=== PATIENT | female | born 1950 | race Caucasian/White ===

== ENCOUNTER 2018-10-25 21:07 | Observation (INO) | payer MEDICARE, BC ==
[2018-10-25] MEDS ORDERED: Morphine 2 MG/ML Syringe IVPUSH ONE (21:22)
[2018-10-25] MEDS ORDERED: Sodium Chloride 0.9% 1,000 ML IV ONE (21:22)
[2018-10-25] MEDS ORDERED: Ondansetron 4 MG/2 ML SDV IVPUSH ONE (21:22)
--- NOTE | 2018-10-25 21:22 | EDM.PDOC ---
<Isac Torres - Last Filed: 10/26/18 00:26> ED HPI GENERAL MEDICAL PROBLEM - General Chief Complaint: Abdominal Pain Stated Complaint: ABDOMINAL PAIN Time Seen by Provider: 10/25/18 21:17 - History of Present Illness INITIAL COMMENTS - FREE TEXT/NARRATIVE: CT scan demonstrates dilated loops of small bowel with some mesenteric fat stranding differential diagnosis includes ileus versus small bowel obstruction patient will be admitted. - Related Data Allergies Allergy/AdvReac Type Severity Reaction Status Date / Time ampicillin Allergy Hives Verified 10/25/18 21:20 Sulfa (Sulfonamide Allergy Hives Verified 10/25/18 21:20 Antibiotics) Home Meds: Home Meds Desvenlafaxine Succinate [Pristiq] 100 mg PO BEDTIME 10/26/18 [History] Diclofenac Sodium/Misoprostol [Arthrotec EC 50 mg-200 Mcg Tab] 1 each PO BID [History] Ondansetron [Zofran] 4 mg PO ASDIRECTED 10/26/18 [History] Ranitidine HCl [Zantac] 300 mg PO DAILY 10/26/18 [History] Course - Vital Signs Last Recorded V/S: Last Vital Signs Temp 96.7 F 10/26/18 16:00 Pulse 59 L 10/26/18 16:00 Resp 20 10/26/18 16:00 BP 98/64 10/26/18 16:00 Pulse Ox 97 10/26/18 16:00 - Orders/Labs/Meds Orders: Medication Orders Acetaminophen (Tylenol) 650 mg PO Q6H PRN PRN Reason: Headache Last Admin: 10/26/18 16:18 Dose: 650 mg Sodium Chloride (Normal Saline) 1,000 mls @ 125 mls/hr IV ASDIRECTED [facility] Last Admin: 10/26/18 11:31 Dose: 125 mls/hr Infusion: 10/26/18 11:01 Dose: 125 mls/hr Admin: 10/26/18 03:01 Dose: 125 mls/hr Morphine Sulfate (Morphine) 2 mg IVPUSH Q2H PRN PRN Reason: Pain Labs: Laboratory Tests 10/25/18 10/25/18 10/25/18 Range/Units 21:30 21:30 22:20 WBC 6.10 (4.0-11.0) K/uL RBC 5.08 (4.30-5.90) M/uL Hgb 12.9 (12.0-16.0) g/dL Hct 40.0 (36.0-46.0) % MCV 78.7 L (80.0-98.0) fL MCH 25.4 L (27.0-32.0) pg MCHC 32.3 (31.0-37.0) g/dL RDW Std Deviation 42.7 (28.0-62.0) fl RDW Coeff of Praveen 15 (11.0-15.0) % Plt Count 132 L (150-400) K/uL MPV 11.20 (7.40-12.00) fL Neut % (Auto) 75.9 (48.0-80.0) % Lymph % (Auto) 19.0 (16.0-40.0) % [place] % (Auto) 3.8 (0.0-15.0) % Eos % (Auto) 1.1 (0.0-7.0) % Baso % (Auto) 0.2 (0.0-1.5) % Neut # (Auto) 4.6 (1.4-5.7) K/uL Lymph # (Auto) 1.2 (0.6-2.4) K/uL [place] # (Auto) 0.2 (0.0-0.8) K/uL Eos # (Auto) 0.1 (0.0-0.7) K/uL Baso # (Auto) 0.0 (0.0-0.1) K/uL Nucleated RBC % 0.0 /100WBC Nucleated RBCs # 0 K/uL Sodium 137 (136-145) mmol/L Potassium 4.7 (3.5-5.1) mmol/L Chloride 101 (98-107) mmol/L Carbon Dioxide 25.4 (21.0-32.0) mmol/L BUN 26 H (7.0-18.0) mg/dL Creatinine 1.2 H (0.6-1.0) mg/dL Est Cr Clr Drug Dosing 37.63 mL/min Estimated GFR (MDRD) 44.8 ml/min Glucose 131 H (74-106) mg/dL Calcium 9.8 (8.5-10.1) mg/dL Total Bilirubin 0.7 (0.2-1.0) mg/dL AST 17 (15-37) IU/L ALT 21 (14-63) IU/L Alkaline Phosphatase 96 (46-116) U/L Total Protein 7.7 (6.4-8.2) g/dL Albumin 4.0 (3.4-5.0) g/dL Globulin 3.7 (2.6-4.0) g/dL Albumin/Globulin Ratio 1.1 (0.9-1.6) Lipase 136 (73-393) U/L Urine Color YELLOW Urine Appearance CLEAR Urine pH 5.0 (5.0-8.0) Ur Specific [place] 1.020 (1.001-1.035) Urine Protein NEGATIVE (NEGATIVE) mg/dL Urine Glucose (UA) NEGATIVE (NEGATIVE) mg/dL Urine Ketones NEGATIVE (NEGATIVE) mg/dL Urine Occult Blood TRACE-INTACT H (NEGATIVE) Urine Nitrite NEGATIVE (NEGATIVE) Urine Bilirubin NEGATIVE (NEGATIVE) Urine Urobilinogen 0.2 (<2.0) EU/dL Ur Leukocyte Esterase NEGATIVE (NEGATIVE) Urine RBC 0-3 (0-2/HPF) Urine WBC 0-2 (0-5/HPF) Ur Epithelial Cells OCCASIONAL (NONE-FEW) Urine Bacteria FEW (NEGATIVE) Meds: Medications Generic Name Dose Route Start Last Admin Trade Name Freq PRN Reason Stop Dose Admin Acetaminophen 650 mg 10/26/18 15:54 10/26/18 16:18 Tylenol PO 650 mg Q6H PRN Administration Headache Sodium Chloride 1,000 mls @ 125 mls/hr 10/26/18 02:45 10/26/18 11:31 Normal Saline IV 125 mls/hr ASDIRECTED MARY Administration Morphine Sulfate 2 mg 10/26/18 02:31 Morphine IVPUSH Q2H PRN Pain Discontinued Medications Generic Name Dose Route Start Last Admin Trade Name Freq PRN Reason Stop Dose Admin Sodium Chloride 1,000 mls @ 999 mls/hr 10/25/18 21:22 10/25/18 21:36 Normal Saline IV 10/25/18 22:22 999 mls/hr STAT ONE Administration Morphine Sulfate 2 mg 10/25/18 21:22 10/25/18 21:38 Morphine IVPUSH 10/25/18 21:23 2 mg ONETIME ONE Administration Morphine Sulfate 2 mg 10/26/18 01:37 10/26/18 01:44 Morphine IVPUSH 10/26/18 01:38 2 mg ONETIME ONE Administration Ondansetron HCl 4 mg 10/25/18 21:22 10/25/18 21:37 Zofran IVPUSH 10/25/18 21:23 4 mg ONETIME ONE Administration Departure - Departure Time of Disposition: 00:27 Disposition: Refer to Observation Condition: Good Clinical Impression: Abdominal pain Qualifiers: Abdominal location: unspecified location Qualified Code(s): R10.9 - Unspecified abdominal pain - Discharge Information <Roshni Rutherford E - Last Filed: 10/26/18 18:24> ED HPI GENERAL MEDICAL PROBLEM - General Source of Information: Reports: Patient History Limitations: Reports: No Limitations - History of Present Illness INITIAL COMMENTS - FREE TEXT/NARRATIVE: HISTORY AND PHYSICAL: History of present illness: Patient is a 68-year-old female who presents to the emergency room with complaints of right upper quadrant pain and nausea. She states symptoms started this morning which she describes as cramping. She states normally she is able to pass "a lot of gas" throughout the day and has not today. She did state she had a normal bowel movement this afternoon. Patient denies any fever, chills, headache, change in vision, syncope or near syncope. Denies any chest pain, back pain, shortness of breath or cough. Denies any vomiting, diarrhea, constipation or dysuria. Has not noted any blood in urine or stool. Patient has been eating and drinking appropriately. Patient has had her gallbladder and appendix removed. Otherwise has no GI history. Review of systems: As per history of present illness and below otherwise all systems reviewed and negative. Past medical history: As per history of present illness and as reviewed below otherwise noncontributory. Surgical history: As per history of present illness and as reviewed below otherwise noncontributory. Social history: See social history for further information Family history: As per history of present illness and as reviewed below otherwise noncontributory. Physical exam: General: Well-developed and well-nourished 68-year-old female. Alert and oriented. Nontoxic appearing and in no acute distress. HEENT: Atraumatic, normocephalic, pupils equal and reactive bilaterally, negative for conjunctival pallor or scleral icterus, mucous membranes moist, TMs normal bilaterally, throat clear, neck supple, nontender, trachea midline. No drooling or trismus noted. No meningeal signs. No hot potato voice noted. Lungs: Clear to auscultation, breath sounds equal bilaterally, chest nontender. Heart: S1S2, regular rate and rhythm without overt murmur Abdomen: Soft, nondistended, right upper quadrant tenderness. Negative for masses or hepatosplenomegaly. Negative for costovertebral tenderness. Pelvis: Stable nontender. Genitourinary: Deferred. Rectal: Deferred. Skin: Intact, warm, dry. No lesions or rashes noted. Extremities: Atraumatic, moves all extremities per self without difficulty or deficits, negative for cords or calf pain. Neurovascular unremarkable. Neuro: Awake, alert, oriented. Cranial nerves II through XII unremarkable. Cerebellum unremarkable. Motor and sensory unremarkable throughout. Exam nonfocal. Notes: Labs and imaging results are pending. Dr Torres was briefed on this patient and will assume care. Diagnostics: CBC, CMP, UA, lipase, CT abdomen and pelvis Therapeutics: IV fluid, Morphine, Zofran Definitive disposition and diagnosis as appropriate pending reevaluation and review of above. Onset: Today Past Medical History HEENT History: Reports: None Cardiovascular History: Reports: None Respiratory History: Reports: None Gastrointestinal History: Reports: Other (See Below) Other Gastrointestinal History: partial obstruction on her small intestine Genitourinary History: Reports: None [employer] WORK[employer] History: Reports: Musculoskeletal History: Reports: Arthritis Neurological History: Reports: None Psychiatric History: Reports: Depression Endocrine/Metabolic History: Reports: None Hematologic History: Reports: None Immunologic History: Reports: None Oncologic (Cancer) History: Reports: None Dermatologic History: Reports: None - Infectious Disease History Infectious Disease History: Reports: None - Past Surgical History Neurological Surgical History: Reports: Other (See Below) ED ROS GENERAL - Review of Systems Review Of Systems: ROS reveals no pertinent complaints other than HPI. ED EXAM, GI/ABD - Physical Exam Exam: See Below (See dictation) Course - Vital Signs Last Recorded V/S: Last Vital Signs Temp 96.7 F 10/26/18 16:00 Pulse 59 L 10/26/18 16:00 Resp 20 10/26/18 16:00 BP 98/64 10/26/18 16:00 Pulse Ox 97 10/26/18 16:00 - Orders/Labs/Meds Labs: Laboratory Tests 10/25/18 10/25/18 10/25/18 Range/Units 21:30 21:30 22:20 WBC 6.10 (4.0-11.0) K/uL RBC 5.08 (4.30-5.90) M/uL Hgb 12.9 (12.0-16.0) g/dL Hct 40.0 (36.0-46.0) % MCV 78.7 L (80.0-98.0) fL MCH 25.4 L (27.0-32.0) pg MCHC 32.3 (31.0-37.0) g/dL RDW Std Deviation 42.7 (28.0-62.0) fl RDW Coeff of Praveen 15 (11.0-15.0) % Plt Count 132 L (150-400) K/uL MPV 11.20 (7.40-12.00) fL Neut % (Auto) 75.9 (48.0-80.0) % Lymph % (Auto) 19.0 (16.0-40.0) % [place] % (Auto) 3.8 (0.0-15.0) % Eos % (Auto) 1.1 (0.0-7.0) % Baso % (Auto) 0.2 (0.0-1.5) % Neut # (Auto) 4.6 (1.4-5.7) K/uL Lymph # (Auto) 1.2 (0.6-2.4) K/uL [place] # (Auto) 0.2 (0.0-0.8) K/uL Eos # (Auto) 0.1 (0.0-0.7) K/uL Baso # (Auto) 0.0 (0.0-0.1) K/uL Nucleated RBC % 0.0 /100WBC Nucleated RBCs # 0 K/uL Sodium 137 (136-145) mmol/L Potassium 4.7 (3.5-5.1) mmol/L Chloride 101 (98-107) mmol/L Carbon Dioxide 25.4 (21.0-32.0) mmol/L BUN 26 H (7.0-18.0) mg/dL Creatinine 1.2 H (0.6-1.0) mg/dL Est Cr Clr Drug Dosing 37.63 mL/min Estimated GFR (MDRD) 44.8 ml/min Glucose 131 H (74-106) mg/dL Calcium 9.8 (8.5-10.1) mg/dL Total Bilirubin 0.7 (0.2-1.0) mg/dL AST 17 (15-37) IU/L ALT 21 (14-63) IU/L Alkaline Phosphatase 96 (46-116) U/L Total Protein 7.7 (6.4-8.2) g/dL Albumin 4.0 (3.4-5.0) g/dL Globulin 3.7 (2.6-4.0) g/dL Albumin/Globulin Ratio 1.1 (0.9-1.6) Lipase 136 (73-393) U/L Urine Color YELLOW Urine Appearance CLEAR Urine pH 5.0 (5.0-8.0) Ur Specific [place] 1.020 (1.001-1.035) Urine Protein NEGATIVE (NEGATIVE) mg/dL Urine Glucose (UA) NEGATIVE (NEGATIVE) mg/dL Urine Ketones NEGATIVE (NEGATIVE) mg/dL Urine Occult Blood TRACE-INTACT H (NEGATIVE) Urine Nitrite NEGATIVE (NEGATIVE) Urine Bilirubin NEGATIVE (NEGATIVE) Urine Urobilinogen 0.2 (<2.0) EU/dL Ur Leukocyte Esterase NEGATIVE (NEGATIVE) Urine RBC 0-3 (0-2/HPF) Urine WBC 0-2 (0-5/HPF) Ur Epithelial Cells OCCASIONAL (NONE-FEW) Urine Bacteria FEW (NEGATIVE) Meds: Medications Generic Name Dose Route Start Last Admin Trade Name Freq PRN Reason Stop Dose Admin Acetaminophen 650 mg 10/26/18 15:54 10/26/18 16:18 Tylenol PO 650 mg Q6H PRN Administration Headache Sodium Chloride 1,000 mls @ 125 mls/hr 10/26/18 02:45 10/26/18 11:31 Normal Saline IV 125 mls/hr ASDIRECTED MARY Administration Morphine Sulfate 2 mg 10/26/18 02:31 Morphine IVPUSH Q2H PRN Pain Discontinued Medications Generic Name Dose Route Start Last Admin Trade Name Freq PRN Reason Stop Dose Admin Sodium Chloride 1,000 mls @ 999 mls/hr 10/25/18 21:22 10/25/18 21:36 Normal Saline IV 10/25/18 22:22 999 mls/hr STAT ONE Administration Morphine Sulfate 2 mg 10/25/18 21:22 10/25/18 21:38 Morphine IVPUSH 10/25/18 21:23 2 mg ONETIME ONE Administration Morphine Sulfate 2 mg 10/26/18 01:37 10/26/18 01:44 Morphine IVPUSH 10/26/18 01:38 2 mg ONETIME ONE Administration Ondansetron HCl 4 mg 10/25/18 21:22 10/25/18 21:37 Zofran IVPUSH 10/25/18 21:23 4 mg ONETIME ONE Administration
--- NOTE | 2018-10-26 00:15 | CT ---
INDICATION: Abdominal pain TECHNIQUE: CT abdomen and pelvis without contrast. COMPARISON: None FINDINGS: Lower chest: Unremarkable. Liver: Unremarkable. Spleen: Unremarkable. Pancreas: Unremarkable. Gallbladder and bile ducts: Cholecystectomy. Dilated common bile duct most likely related to reservoir effect. Kidneys: Unremarkable. No kidney or ureteral stones and no hydronephrosis. Adrenal glands: Unremarkable. GI tract: Dilated fluid-filled small bowel loops measure up to 3.4 centimeters with physicians somewhere in the right lower quadrant and mild adjacent mesenteric fat stranding. Findings may represent ileus versus small-bowel obstruction.. Appendix is not visualized. Vascular structures: Unremarkable. Lymph nodes: Unremarkable. Miscellaneous: Unremarkable. No free air. Small amount of free fluid in the pelvis. Pelvic Organs: Unremarkable. Bones: Grade 1 anterolisthesis L3 over L4. IMPRESSION: Dilated fluid-filled small bowel loops measure up to 3.4 centimeters with changing caliber somewhere in the region of the mid to distal ileum with adjacent mesenteric fat stranding. Findings may represent ileus or small-bowel obstruction. Cholecystectomy. Dictated by Wojciech Bower MD @ 10/26/2018 12:13:14 AM Please note that all CT scans at this facility use dose modulation, iterative reconstruction, and/or weight-based dosing when appropriate to reduce radiation dose to as low as reasonably achievable. Dictated by: Wojciech Bower MD @ 10/26/2018 00:13:22 (Electronically Signed)
[2018-10-26] MEDS ORDERED: Morphine 2 MG/ML Syringe IVPUSH ONE (01:37)
[2018-10-26] MEDS ORDERED: Morphine 2 MG/ML Syringe IVPUSH PRN (02:31)
[2018-10-26] MEDS: Sodium Chloride 0.9% 1,000 ML IV SCH ×3 (03:01→20:42)
--- NOTE | 2018-10-26 13:55 | PCM.HP ---
H&P History of Present Illness - General Date of Service: 10/26/18 Admit Problem/Dx: Admission Diagnosis/Problem Admission Diagnosis/Problem Abdominal pain - History of Present Illness Initial Comments - Free Text/Narative: 68 yo female who presents with one day history of abdominal pain, nausea and vomiting. Patient reports last bowel movement was yesterday. IN the ED patient had CT scan of abdomen suggestive of ileus. Abdominal Pain Score (Numeric/FACES): 6 - Related Data Allergies/Adverse Reactions: Allergies Allergy/AdvReac Type Severity Reaction Status Date / Time ampicillin Allergy Hives Verified 10/25/18 21:20 Sulfa (Sulfonamide Allergy Hives Verified 10/25/18 21:20 Antibiotics) Home Medications: Home Meds Desvenlafaxine Succinate [Pristiq] 100 mg PO BEDTIME 10/26/18 [History] Diclofenac Sodium/Misoprostol [Arthrotec EC 50 mg-200 Mcg Tab] 1 each PO BID [History] Ondansetron [Zofran] 4 mg PO ASDIRECTED 10/26/18 [History] Ranitidine HCl [Zantac] 300 mg PO DAILY 10/26/18 [History] Past Medical History HEENT History: Reports: None Cardiovascular History: Reports: None Respiratory History: Reports: None Gastrointestinal History: Reports: Other (See Below) Other Gastrointestinal History: partial obstruction on her small intestine Genitourinary History: Reports: 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: Musculoskeletal History: Reports: Arthritis Neurological History: Reports: None Psychiatric History: Reports: Depression Endocrine/Metabolic History: Reports: None Hematologic History: Reports: None Immunologic History: Reports: None Oncologic (Cancer) History: Reports: None Dermatologic History: Reports: None - Infectious Disease History Infectious Disease History: Reports: None - Past Surgical History Neurological Surgical History: Reports: Other (See Below) Social & Family History - Family History Family Medical History: Noncontributory - Tobacco Use Smoking Status *Q: Never Smoker Second Hand Smoke Exposure: No - Caffeine Use Caffeine Use: Reports: Soda - Recreational Drug Use Recreational Drug Use: No H&P Review of Systems - Review of Systems: Review Of Systems: ROS reveals no pertinent complaints other than HPI. Exam - Exam Exam: See Below - Vital Signs Vital Signs: Last Vital Signs Temp 35.9 C 10/26/18 12:00 Pulse 75 10/26/18 12:00 Resp 22 H 10/26/18 12:00 BP 101/68 10/26/18 12:00 Pulse Ox 95 10/26/18 12:00 Weight: 85.321 kg - Exam General: Alert, Oriented HEENT: Mucosa Moist & [place] Neck: Supple Lungs: Clear to Auscultation, Normal Respiratory Effort Cardiovascular: Regular Rate, Regular Rhythm GI/Abdominal Exam: Normal Bowel Sounds, Soft, Non-Tender, No Distention Extremities: Non-Tender, No Pedal Edema Skin: Warm, Dry, Intact - Patient Data Lab Results Last 24 hrs: Laboratory Results - last 24 hr 10/25/18 10/25/18 10/25/18 Range/Units 21:30 21:30 22:20 WBC 6.10 (4.0-11.0) K/uL RBC 5.08 (4.30-5.90) M/uL Hgb 12.9 (12.0-16.0) g/dL Hct 40.0 (36.0-46.0) % MCV 78.7 L (80.0-98.0) fL MCH 25.4 L (27.0-32.0) pg MCHC 32.3 (31.0-37.0) g/dL RDW Std Deviation 42.7 (28.0-62.0) fl RDW Coeff of Praveen 15 (11.0-15.0) % Plt Count 132 L (150-400) K/uL MPV 11.20 (7.40-12.00) fL Neut % (Auto) 75.9 (48.0-80.0) % Lymph % (Auto) 19.0 (16.0-40.0) % [place] % (Auto) 3.8 (0.0-15.0) % Eos % (Auto) 1.1 (0.0-7.0) % Baso % (Auto) 0.2 (0.0-1.5) % Neut # (Auto) 4.6 (1.4-5.7) K/uL Lymph # (Auto) 1.2 (0.6-2.4) K/uL [place] # (Auto) 0.2 (0.0-0.8) K/uL Eos # (Auto) 0.1 (0.0-0.7) K/uL Baso # (Auto) 0.0 (0.0-0.1) K/uL Nucleated RBC % 0.0 /100WBC Nucleated RBCs # 0 K/uL Sodium 137 (136-145) mmol/L Potassium 4.7 (3.5-5.1) mmol/L Chloride 101 (98-107) mmol/L Carbon Dioxide 25.4 (21.0-32.0) mmol/L BUN 26 H (7.0-18.0) mg/dL Creatinine 1.2 H (0.6-1.0) mg/dL Est Cr Clr Drug Dosing 37.63 mL/min Estimated GFR (MDRD) 44.8 ml/min Glucose 131 H (74-106) mg/dL Calcium 9.8 (8.5-10.1) mg/dL Total Bilirubin 0.7 (0.2-1.0) mg/dL AST 17 (15-37) IU/L ALT 21 (14-63) IU/L Alkaline Phosphatase 96 (46-116) U/L Total Protein 7.7 (6.4-8.2) g/dL Albumin 4.0 (3.4-5.0) g/dL Globulin 3.7 (2.6-4.0) g/dL Albumin/Globulin Ratio 1.1 (0.9-1.6) Lipase 136 (73-393) U/L Urine Color YELLOW Urine Appearance CLEAR Urine pH 5.0 (5.0-8.0) Ur Specific [place] 1.020 (1.001-1.035) Urine Protein NEGATIVE (NEGATIVE) mg/dL Urine Glucose (UA) NEGATIVE (NEGATIVE) mg/dL Urine Ketones NEGATIVE (NEGATIVE) mg/dL Urine Occult Blood TRACE-INTACT H (NEGATIVE) Urine Nitrite NEGATIVE (NEGATIVE) Urine Bilirubin NEGATIVE (NEGATIVE) Urine Urobilinogen 0.2 (<2.0) EU/dL Ur Leukocyte Esterase NEGATIVE (NEGATIVE) Urine RBC 0-3 (0-2/HPF) Urine WBC 0-2 (0-5/HPF) Ur Epithelial Cells OCCASIONAL (NONE-FEW) Urine Bacteria FEW (NEGATIVE) Result Diagrams: 10/25/18 21:30 10/25/18 21:30 Problem List Initiated/Reviewed/Updated: Yes Orders Last 24hrs: Active Orders 24 hr Category Date Time Status Patient Status [ADT] Stat ADT 10/26/18 00:27 Active Antiembolic Devices [RC] PER UNIT ROUTINE Care 10/26/18 13:53 Ordered Oxygen Therapy [RC] PRN Care 10/26/18 13:48 Ordered Up ad [place] [RC] ASDIRECTED Care 10/26/18 13:48 Ordered VTE/DVT Education [RC] PER UNIT ROUTINE Care 10/26/18 13:48 Ordered Vital Signs [RC] Q4H Care 10/26/18 13:48 Ordered NPO [Nothing Per Oral Diet] [DIET] Diet 10/26/18 Breakfast Active BASIC METABOLIC PANEL,BMP [CHEM] AM Lab 10/27/18 05:11 Ordered BASIC METABOLIC PANEL,BMP [CHEM] AM Lab 10/28/18 05:11 Ordered CBC WITH AUTO DIFF [HEME] AM Lab 10/27/18 05:11 Ordered CBC WITH AUTO DIFF [HEME] AM Lab 10/28/18 05:11 Ordered Morphine Med 10/26/18 02:31 Active 2 mg IVPUSH Q2H PRN Sodium Chloride 0.9% [Normal Saline] 1,000 ml Med 10/26/18 02:45 Active IV ASDIRECTED Sequential Compression Device [OM.PC] Per Unit Routine Oth 10/26/18 13:51 Ordered Resuscitation Status Routine Resus Stat 10/26/18 13:48 Ordered Medication Orders Sodium Chloride (Normal Saline) 1,000 mls @ 125 mls/hr IV ASDIRECTED MARY Last Admin: 10/26/18 11:31 Dose: 125 mls/hr Infusion: 10/26/18 11:01 Dose: 125 mls/hr Admin: 10/26/18 03:01 Dose: 125 mls/hr Morphine Sulfate (Morphine) 2 mg IVPUSH Q2H PRN PRN Reason: Pain Assessment/Plan Comment:: 68 yo female admitted for partial small bowel obstruction. Patient reports abdominal pain has been improving since admission. We will treat with IV fluids and bowel rest.
[2018-10-26] MEDS: Acetaminophen 325 MG Tab PO PRN (16:18)
[2018-10-27] MEDS: Sodium Chloride 0.9% 1,000 ML IV SCH (04:44)
[2018-10-27 06:56] LABS: CHLORIDE,CL 110 mmol/L (98-107); SODIUM,NA 143 mmol/L (136-145)
--- NOTE | 2018-10-27 11:15 | PCM.DCSUM1 ---
Discharge Summary - Discharge Data Discharge Date: 10/27/18 Discharge Disposition: Home, Self-Care 01 Condition: Good - Patient Summary/Data Hospital Course: 68 yo female who was admitted for partial small bowel obstruction. She presents with one day history of abdominal pain, nausea and vomiting. CT scan of abdomen was also suggestive of ileus. She was treated with bowel rest and IV fluids. Her abdominal pain resolved and at discharge she is tolerating an oral diet. She has a follow up with Dr. Stevenson who has already referred her for outpatient endoscopy. - Patient Instructions Diet: Usual Diet as Tolerated Activity: As Tolerated Notify Provider of: Increased Pain - Discharge Plan Home Medications: Home Meds Desvenlafaxine Succinate [Pristiq] 100 mg PO BEDTIME 10/26/18 [History] Diclofenac Sodium/Misoprostol [Arthrotec EC 50 mg-200 Mcg Tab] 1 each PO BID [History] Ondansetron [Zofran] 4 mg PO ASDIRECTED 10/26/18 [History] Ranitidine HCl [Zantac] 300 mg PO DAILY 10/26/18 [History] Forms: ED Department Discharge Referrals: PCP,Unknown [Primary Care Provider] - - Discharge Summary/Plan Comment DC Time >30 min.: No - Patient Data Vitals - Most Recent: Last Vital Signs Temp 36.6 C 10/27/18 07:51 Pulse 64 10/27/18 07:51 Resp 17 10/27/18 07:51 BP 115/66 10/27/18 07:51 Pulse Ox 96 10/27/18 07:51 Weight - Most Recent: 85.321 kg I&O - Last 24 hours: Intake & Output 10/26/18 10/27/18 10/27/18 22:59 06:59 14:59 Intake Total 1409 1422 Output Total 600 1300 Balance 809 122 Lab Results - Last 24 hrs: Laboratory Results - last 24 hr 10/27/18 10/27/18 Range/Units 06:05 06:05 WBC 2.73 L (4.0-11.0) K/uL RBC 3.91 L (4.30-5.90) M/uL Hgb 9.8 L (12.0-16.0) g/dL Hct 31.3 L (36.0-46.0) % MCV 80.1 (80.0-98.0) fL MCH 25.1 L (27.0-32.0) pg MCHC 31.3 (31.0-37.0) g/dL RDW Std Deviation 42.5 (28.0-62.0) fl RDW Coeff of Praveen 15 (11.0-15.0) % Plt Count 155 (150-400) K/uL MPV 10.00 (7.40-12.00) fL Neut % (Auto) 49.8 (48.0-80.0) % Lymph % (Auto) 37.4 (16.0-40.0) % [place] % (Auto) 9.2 (0.0-15.0) % Eos % (Auto) 2.9 (0.0-7.0) % Baso % (Auto) 0.7 (0.0-1.5) % Neut # (Auto) 1.4 (1.4-5.7) K/uL Lymph # (Auto) 1.0 (0.6-2.4) K/uL [place] # (Auto) 0.3 (0.0-0.8) K/uL Eos # (Auto) 0.1 (0.0-0.7) K/uL Baso # (Auto) 0.0 (0.0-0.1) K/uL Nucleated RBC % 0.0 /100WBC Nucleated RBCs # 0 K/uL Sodium 143 (136-145) mmol/L Potassium 3.5 (3.5-5.1) mmol/L Chloride 110 H (98-107) mmol/L Carbon Dioxide 27.4 (21.0-32.0) mmol/L BUN 17 (7.0-18.0) mg/dL Creatinine 0.9 (0.6-1.0) mg/dL Est Cr Clr Drug Dosing 50.18 mL/min Estimated GFR (MDRD) > 60.0 ml/min Glucose 86 (74-106) mg/dL Calcium 8.4 L (8.5-10.1) mg/dL Med Orders - Current: Current Medications Acetaminophen (Tylenol) 650 mg PO Q6H PRN PRN Reason: Headache Last Admin: 10/26/18 16:18 Dose: 650 mg Sodium Chloride (Normal Saline) 1,000 mls @ 125 mls/hr IV ASDIRECTED [facility] Last Admin: 10/27/18 04:44 Dose: 125 mls/hr Morphine Sulfate (Morphine) 2 mg IVPUSH Q2H PRN PRN Reason: Pain Discontinued Medications Sodium Chloride (Normal Saline) 1,000 mls @ 999 mls/hr IV STAT ONE Stop: 10/25/18 22:22 Last Admin: 10/25/18 21:36 Dose: 999 mls/hr Morphine Sulfate (Morphine) 2 mg IVPUSH ONETIME ONE Stop: 10/25/18 21:23 Last Admin: 10/25/18 21:38 Dose: 2 mg Morphine Sulfate (Morphine) 2 mg IVPUSH ONETIME ONE Stop: 10/26/18 01:38 Last Admin: 10/26/18 01:44 Dose: 2 mg Ondansetron HCl (Zofran) 4 mg IVPUSH ONETIME ONE Stop: 10/25/18 21:23 Last Admin: 10/25/18 21:37 Dose: 4 mg
[2018-10-27] MEDS: Acetaminophen 325 MG Tab PO PRN (12:21)
[2018-10-27 12:46] VITALS: BP 144/82
== END 2018-10-27 13:40 | disposition home or self-care (01) ==
LOC: MW.ED 21:07 → MW.MS 10-26 00:27
PROVIDERS: ADMIT Internal Medicine; ATTEND Internal Medicine
DX: K56.609 Unspecified intestinal obstruction, unspecified as to partial versus complete obstruction (principal); Z79.1 Long term (current) use of non-steroidal anti-inflammatories (NSAID); Z79.899 Other long term (current) drug therapy; Z88.0 Allergy status to penicillin; Z88.2 Allergy status to sulfonamides
CPT/HCPCS: 36415; 74176; 80048; 80053; 81001; 83690; 85025; 96361; 96374; 96375; 96376; 99285; A9270; G0378; J2270; J2405; J7040; 99284

== ENCOUNTER 2018-12-04 20:23 | Emergency (ER) | payer MEDICARE, BC ==
[2018-12-04] MEDS ORDERED: Sodium Chloride 0.9% 1,000 ML IV ONE (20:47)
[2018-12-04] MEDS ORDERED: Ondansetron 4 MG/2 ML SDV IVPUSH ONE (20:53)
[2018-12-04] MEDS ORDERED: Morphine 2 MG/ML Syringe IVPUSH ONE (20:53)
--- NOTE | 2018-12-04 20:57 | EDM.PDOC ---
ED HPI GENERAL MEDICAL PROBLEM - General Chief Complaint: Genitourinary Problem Stated Complaint: FEVER AND MID BACK PAIN Time Seen by Provider: 12/04/18 20:47 Source of Information: Reports: Patient History Limitations: Reports: No Limitations - History of Present Illness INITIAL COMMENTS - FREE TEXT/NARRATIVE: HISTORY AND PHYSICAL: History of present illness: Patient is a 68-year-old female who presents to the emergency room with complaints of bilateral flank pain, dysuria, subjective fever and chills. Patient states that her symptoms started with the mid back pain near her flanks for the past 3 days. Over the past 24 hours she feels like she has been running a fever and is having difficulty voiding. States her urine is dark in color and voiding small amounts. Patient denies any headache, change in vision, syncope or near syncope. Denies any chest pain, back pain, shortness of breath or cough. Denies any nausea, vomiting, diarrhea, or constipation. Has not noted any blood in urine or stool. Patient has been eating appropriately, but not drinking much water. Review of systems: As per history of present illness and below otherwise all systems reviewed and negative. Past medical history: As per history of present illness and as reviewed below otherwise noncontributory. Surgical history: As per history of present illness and as reviewed below otherwise noncontributory. Social history: See social history for further information Family history: As per history of present illness and as reviewed below otherwise noncontributory. Physical exam: General: Well-developed and well-nourished 68-year-old female. Alert and oriented. Nontoxic appearing and in no acute distress. HEENT: Atraumatic, normocephalic, pupils equal and reactive bilaterally, negative for conjunctival pallor or scleral icterus, mucous membranes moist, TMs normal bilaterally, throat clear, neck supple, nontender, trachea midline. No drooling or trismus noted. No meningeal signs. No hot potato voice noted. Lungs: Clear to auscultation, breath sounds equal bilaterally, chest nontender. Heart: S1S2, regular rate and rhythm without overt murmur Abdomen: Soft, nondistended, mild left lower quadrant tenderness with palpation. Negative for masses or hepatosplenomegaly. Negative for costovertebral tenderness. Pelvis is stable and nontender. Genitourinary/Rectal: Deferred. Skin: Intact, warm, dry. No lesions or rashes noted. Extremities: Atraumatic, moves all extremities per self without difficulty or deficits, negative for cords or calf pain. Neurovascular unremarkable. Neuro: Awake, alert, oriented. Cranial nerves II through XII unremarkable. Cerebellum unremarkable. Motor and sensory unremarkable throughout. Exam nonfocal. Notes: CT shows no acute abnormality identified. No calcified urinary stones/evidence of obstruction. Urinary bladder unremarkable. Nonobstructive bowel pattern. Scattered diverticulosis. Stable enlargement of the common bile duct, likely reservoir effect. Patient is mild hypokalemia, oral replacement will be given here and an additional 4 day prescription. Encouraged her to increase her oral fluids as she does appear dehydrated. She did receive 1 L fluids while here in the emergency room. Patient does have a history of anemia, past hemoglobin relatively the same as today's result. All findings were shared with the patient. We discussed the need for appropriate follow-up. Supportive care measures were reviewed and discussed. Voices understanding and is agreeable to plan of care. Denies any further questions or concerns at this time. Diagnostics: CBC, CMP, UA, CT abdomen and pelvis without Therapeutics: IV fluid, Zofran, morphine Prescription: Cipro K-dur Pyridium Impression: Anemia Dehydration Urinary tract infection Plan: 1. Increase your oral fluids, mild dehydration today. 2. Take medication as prescribed. You have 3 prescriptions. Antibiotic for your urinary tract infection. Pyridium to help with the discomfort associated with your urinary tract infection and an oral potassium replacement as he were slightly low than normal. I would like him to follow up for reevaluation of all of these. 3. Follow up with your primary care providers as we discussed. Return to the ED as needed as discussed. Definitive disposition and diagnosis as appropriate pending reevaluation and review of above. Bilateral Middle Back Pain Score (Numeric/FACES): 10 - Related Data Allergies Allergy/AdvReac Type Severity Reaction Status Date / Time ampicillin Allergy Hives Verified 12/04/18 20:42 Sulfa (Sulfonamide Allergy Hives Verified 12/04/18 20:42 Antibiotics) Home Meds: Home Meds Desvenlafaxine Succinate [Pristiq] 100 mg PO BEDTIME 10/26/18 [History] Diclofenac Sodium/Misoprostol [Arthrotec EC 50 mg-200 Mcg Tab] 1 each PO BID [History] Ranitidine HCl [Zantac] 300 mg PO DAILY 10/26/18 [History] Docusate Sodium [Stool Softener] 50 mg PO ASDIRECTED 12/04/18 [History] Past Medical History HEENT History: Reports: None Cardiovascular History: Reports: None Respiratory History: Reports: None Gastrointestinal History: Reports: Hemorrhoids, Other (See Below) Other Gastrointestinal History: partial obstruction on her small intestine Genitourinary History: Reports: None FRAME BENDER History: Reports: Musculoskeletal History: Reports: Arthritis Neurological History: Reports: None Psychiatric History: Reports: Depression Endocrine/Metabolic History: Reports: None Hematologic History: Reports: None Immunologic History: Reports: None Oncologic (Cancer) History: Reports: None Dermatologic History: Reports: None - Infectious Disease History Infectious Disease History: Reports: Chicken Pox, Measles - Past Surgical History GI Surgical History: Reports: Colonoscopy, EGD Neurological Surgical History: Reports: Other (See Below) Social & Family History - Family History Family Medical History: Noncontributory - Tobacco Use Smoking Status *Q: Never Smoker - Caffeine Use Caffeine Use: Reports: Soda - Recreational Drug Use Recreational Drug Use: No ED ROS GENERAL - Review of Systems Review Of Systems: ROS reveals no pertinent complaints other than HPI. ED EXAM, RENAL/ - Physical Exam Exam: See Below (See dictation) Course - Vital Signs Last Recorded V/S: Last Vital Signs Temp 96.6 F 12/04/18 20:40 Pulse 90 12/04/18 21:34 Resp 15 12/04/18 21:34 BP 122/68 12/04/18 21:34 Pulse Ox 100 12/04/18 21:34 - Orders/Labs/Meds Orders: Active Orders 24 hr Category Date Time Status CULTURE URINE [RM] Stat Lab 12/04/18 21:30 Received Ciprofloxacin [Ciprofloxacin HCl] Med 12/04/18 21:58 Once 500 mg PO ONETIME ONE Phenazopyridine [Pyridium] Med 12/04/18 21:58 Once 200 mg PO ONETIME ONE Labs: Laboratory Tests 12/04/18 12/04/18 12/04/18 Range/Units 21:15 21:15 21:30 WBC 7.35 (4.0-11.0) K/uL RBC 3.79 L (4.30-5.90) M/uL Hgb 9.7 L (12.0-16.0) g/dL Hct 30.2 L (36.0-46.0) % MCV 79.7 L (80.0-98.0) fL MCH 25.6 L (27.0-32.0) pg MCHC 32.1 (31.0-37.0) g/dL RDW Std Deviation 43.5 (28.0-62.0) fl RDW Coeff of Praveen 15 (11.0-15.0) % Plt Count 202 (150-400) K/uL MPV 9.40 (7.40-12.00) fL Neut % (Auto) 81.0 H (48.0-80.0) % Lymph % (Auto) 9.5 L (16.0-40.0) % [place] % (Auto) 8.3 (0.0-15.0) % Eos % (Auto) 1.1 (0.0-7.0) % Baso % (Auto) 0.1 (0.0-1.5) % Neut # (Auto) 6.0 H (1.4-5.7) K/uL Lymph # (Auto) 0.7 (0.6-2.4) K/uL [place] # (Auto) 0.6 (0.0-0.8) K/uL Eos # (Auto) 0.1 (0.0-0.7) K/uL Baso # (Auto) 0.0 (0.0-0.1) K/uL Nucleated RBC % 0.0 /100WBC Nucleated RBCs # 0 K/uL Sodium 134 L (136-145) mmol/L Potassium 3.3 L (3.5-5.1) mmol/L Chloride 96 L (98-107) mmol/L Carbon Dioxide 27.2 (21.0-32.0) mmol/L BUN 20 H (7.0-18.0) mg/dL Creatinine 1.3 H (0.6-1.0) mg/dL Est Cr Clr Drug Dosing 34.74 mL/min Estimated GFR (MDRD) 40.9 ml/min Glucose 120 H (74-106) mg/dL Calcium 8.6 (8.5-10.1) mg/dL Total Bilirubin 1.2 H (0.2-1.0) mg/dL AST 19 (15-37) IU/L ALT 18 (14-63) IU/L Alkaline Phosphatase 95 (46-116) U/L Total Protein 6.7 (6.4-8.2) g/dL Albumin 3.2 L (3.4-5.0) g/dL Globulin 3.5 (2.6-4.0) g/dL Albumin/Globulin Ratio 0.9 (0.9-1.6) Urine Color YELLOW Urine Appearance CLEAR Urine pH 5.0 (5.0-8.0) Ur Specific [place] 1.010 (1.001-1.035) Urine Protein NEGATIVE (NEGATIVE) mg/dL Urine Glucose (UA) NEGATIVE (NEGATIVE) mg/dL Urine Ketones NEGATIVE (NEGATIVE) mg/dL Urine Occult Blood TRACE-INTACT H (NEGATIVE) Urine Nitrite NEGATIVE (NEGATIVE) Urine Bilirubin NEGATIVE (NEGATIVE) Urine Urobilinogen 0.2 (<2.0) EU/dL Ur Leukocyte Esterase TRACE H (NEGATIVE) Urine RBC NONE SEEN (0-2/HPF) Urine WBC 1-3 (0-5/HPF) Ur Epithelial Cells FEW (NONE-FEW) Urine Bacteria RARE (NEGATIVE) Urine Mucus LIGHT (NONE-MOD) Meds: Medications Discontinued Medications Generic Name Dose Route Start Last Admin Trade Name Freq PRN Reason Stop Dose Admin Sodium Chloride 1,000 mls @ 999 mls/hr 12/04/18 20:47 12/04/18 21:11 Normal Saline IV 12/04/18 21:47 999 mls/hr STAT ONE Administration Morphine Sulfate 2 mg 12/04/18 20:53 12/04/18 21:11 Morphine IVPUSH 12/04/18 20:54 2 mg ONETIME ONE Administration Ondansetron HCl 4 mg 12/04/18 20:53 12/04/18 21:11 Zofran IVPUSH 12/04/18 20:54 4 mg ONETIME ONE Administration Departure - Departure Time of Disposition: 21:59 Disposition: Home, Self-Care 01 Clinical Impression: UTI, Urinary tract infectious disease, Dehydration, mild, Hypokalemia - Discharge Information Referrals: Sherice Bedoya DO [Primary Care Provider] - Forms: ED Department Discharge Additional Instructions: The following information is given to patients seen in the emergency department who are being discharged to home. This information is to outline your options for follow-up care. We provide all patients seen in our emergency department with a follow-up referral. The need for follow-up, as well as the timing and circumstances, are variable depending upon the specifics of your emergency department visit. If you don't have a primary care physician on staff, we will provide you with a referral. We always advise you to contact your personal physician following an emergency department visit to inform them of the circumstance of the visit and for follow-up with them and/or the need for any referrals to a consulting specialist. The emergency department will also refer you to a specialist when appropriate. This referral assures that you have the opportunity for follow-up care with a specialist. All of these measure are taken in an effort to provide you with optimal care, which includes your follow-up. Under all circumstances we always encourage you to contact your private physician who remains a resource for coordinating your care. When calling for follow-up care, please make the office aware that this follow-up is from your recent emergency room visit. If for any reason you are refused follow-up, please contact the [facility] Emergency Department at and asked to speak to the emergency department charge nurse. [facility] [address] [place], [place] [id number] [address] [address] 1. Increase your oral fluids, mild dehydration today. 2. Take medication as prescribed. You have 3 prescriptions. Antibiotic for your urinary tract infection. Pyridium to help with the discomfort associated with your urinary tract infection and an oral potassium replacement as he were slightly low than normal. I would like him to follow up for reevaluation of all of these. 3. Follow up with your primary care providers as we discussed. Return to the ED as needed as discussed. - My Orders Last 24 Hours: My Active Orders 12/04/18 21:30 CULTURE URINE [RM] Stat 12/04/18 21:58 Ciprofloxacin [Ciprofloxacin HCl] 500 mg PO ONETIME ONE Phenazopyridine [Pyridium] 200 mg PO ONETIME ONE - Assessment/Plan Last 24 Hours: My Active Orders 12/04/18 21:30 CULTURE URINE [RM] Stat 12/04/18 21:58 Ciprofloxacin [Ciprofloxacin HCl] 500 mg PO ONETIME ONE Phenazopyridine [Pyridium] 200 mg PO ONETIME ONE
--- NOTE | 2018-12-04 21:36 | CT ---
INDICATION: Bilateral upper quadrant pain, dysuria. TECHNIQUE: Nonenhanced volumetric CT scan abdomen pelvis with multiplanar reconstructions. COMPARISON: October 25, 2018. FINDINGS: Lower chest is unremarkable. No calcified urinary stones. Ureters are normal in course and caliber. The urinary bladder is unremarkable. Noncontrast appearance of the solid abdominal organs is stable and within normal limits. Cholecystectomy. Mild enlargement of common bile duct re-identified, stable. Nonobstructing, unremarkable bowel pattern. No evidence of obstruction. Appendix not seen. No evidence of ascites, free air, nor inflammatory change. Stimulator device in left flank with leads and wires extending into the spine at approximately L1 and T12 levels. Urinary bladder unremarkable. Hysterectomy. No adnexal mass. 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 Grade 1 anterolisthesis L3 on L4 re-identified. IMPRESSION: 1. No acute abnormality identified. 2. No calcified urinary stones/evidence of obstruction. Urinary bladder unremarkable. 3. Nonobstructive bowel pattern. Scattered diverticulosis. 4. Stable enlargement of the common bile duct, likely reservoir effect. Please note that all CT scans at this facility use dose modulation, iterative reconstruction, and/or weight-based dosing when appropriate to reduce radiation dose to as low as reasonably achievable. Dictated by Rafal Howell MD @ Dec 04 2018 9:21PM Signed by Dr. Rafal Howell @ Dec 04 2018 9:35PM
[2018-12-04] MEDS ORDERED: Ciprofloxacin 500 MG Tab PO ONE (21:58)
[2018-12-04] MEDS ORDERED: Phenazopyridine 200 MG Tab PO ONE (21:58)
[2018-12-04 23:11] VITALS: BP 110/69
== END 2018-12-04 22:40 | disposition home or self-care (01) ==
LOC: MW.ED 20:23
DX: N39.0 Urinary tract infection, site not specified (principal); E86.0 Dehydration; D64.9 Anemia, unspecified; F32.9 Major depressive disorder, single episode, unspecified; Z88.1 Allergy status to other antibiotic agents; Z88.2 Allergy status to sulfonamides; Z79.899 Other long term (current) drug therapy
CPT/HCPCS: 36415; 74176; 80053; 81001; 85025; 87086; 96361; 96374; 96375; 99284; A9270; J2270; J2405; J7040

== ENCOUNTER 2019-07-24 10:33 | Observation (INO) | payer MEDICARE, BC ==
--- NOTE | 2019-07-24 10:39 | EDM.PDOC ---
ED HPI GENERAL MEDICAL PROBLEM - General Stated Complaint: SWEATS,WHEEZING,SHAKY Time Seen by Provider: 07/24/19 10:38 Source of Information: Reports: Patient History Limitations: Reports: No Limitations - History of Present Illness INITIAL COMMENTS - FREE TEXT/NARRATIVE: HISTORY AND PHYSICAL: History of present illness: Patient is a 69-year-old female who presents to the emergency room today with complaints of shortness of breath and diaphoresis. She states that she has had some shortness of breath over the past 2 days along with just generally feeling unwell and rundown. Today while at work she states "sweat was just pouring off of me". She also feels somewhat dizzy. Patient denies any fever, chills, headache, change in vision, syncope or near syncope. Denies any chest pain, back pain or cough. Denies any abdominal pain, nausea, vomiting, diarrhea, constipation or dysuria. Has not noted any blood in urine or stool. Patient has been eating and drinking appropriately. She denies any recent travel or being exposed to anyone who is sick. Review of systems: As per history of present illness and below otherwise all systems reviewed and negative. Past medical history: As per history of present illness and as reviewed below otherwise noncontributory. Surgical history: As per history of present illness and as reviewed below otherwise noncontributory. Social history: See social history for further information Family history: As per history of present illness and as reviewed below otherwise noncontributory. Physical exam: General: Developed and well-nourished 69-year-old female. Alert and oriented. Nontoxic-appearing and in no acute distress. HEENT: Atraumatic, normocephalic, pupils equal and reactive bilaterally, negative for conjunctival pallor or scleral icterus, mucous membranes moist, TMs normal bilaterally, throat clear, neck supple, nontender, trachea midline. No drooling or trismus noted. No meningeal signs. No hot potato voice noted. Lungs: Clear to auscultation, breath sounds equal bilaterally, chest nontender. Heart: S1S2, regular rate and rhythm without overt murmur Abdomen: Soft, nondistended, nontender. Negative for masses or hepatosplenomegaly. Negative for costovertebral tenderness. Pelvis: Stable nontender. Skin: Intact, warm, and slightly diaphoretic. No lesions or rashes noted. Extremities: Atraumatic, moves all extremities per self without difficulty or deficits, negative for cords or calf pain. Neurovascular unremarkable. Neuro: Awake, alert, oriented. Cranial nerves II through XII unremarkable. Cerebellum unremarkable. Motor and sensory unremarkable throughout. Exam nonfocal. Notes: Lab work shows an elevated d-dimer and renal function. I will need to do a CT of her chest to rule out PE. Patient is aware and agreeable to plan of care. The radiologist is reading the CT chest as no gross pulmonary embolism in the main or proximal segment branches. More distally PE could be missed due to suboptimal opacified pulmonary arteries. Patient's vital signs have been stable. As I am talking to the patient about her diagnostic results she states she does feel better with her shortness of breath although now has developed some pain between her shoulder blades (which is new within the last 30 minutes) . New lab work has been added on, will repeat EKG. We discussed observation admission which she is agreeable to. Dr Gee was consulted on this case and will admit for observation with telemetry. Diagnostics: CBC, CMP, d-dimer, UA, EKG, chest x-ray, CT chest rule out PE, Troponin, INR Therapeutics: IV fluid, DuoNeb Impression: Dyspnea Plan: Observation admission with telemetry Definitive disposition and diagnosis as appropriate pending reevaluation and review of above. - Related Data Allergies Allergy/AdvReac Type Severity Reaction Status Date / Time ampicillin Allergy Hives Verified 12/04/18 20:42 Sulfa (Sulfonamide Allergy Hives Verified 12/04/18 20:42 Antibiotics) Home Meds: Home Meds Desvenlafaxine Succinate [Pristiq] 100 mg PO BEDTIME 10/26/18 [History] Diclofenac Sodium/Misoprostol [Arthrotec EC 50 mg-200 Mcg Tab] 1 each PO BID [History] raNITIdine HCl [Zantac] 300 mg PO DAILY 10/26/18 [History] Docusate Sodium [Stool Softener] 50 mg PO ASDIRECTED 12/04/18 [History] Past Medical History HEENT History: Reports: None Cardiovascular History: Reports: None Respiratory History: Reports: None Gastrointestinal History: Reports: Hemorrhoids, Other (See Below) Other Gastrointestinal History: partial obstruction on her small intestine Genitourinary History: Reports: None [employer]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: Musculoskeletal History: Reports: Arthritis Neurological History: Reports: None Psychiatric History: Reports: Depression Endocrine/Metabolic History: Reports: None Hematologic History: Reports: None Immunologic History: Reports: None Oncologic (Cancer) History: Reports: None Dermatologic History: Reports: None - Infectious Disease History Infectious Disease History: Reports: Chicken Pox, Measles - Past Surgical History GI Surgical History: Reports: Colonoscopy, EGD Neurological Surgical History: Reports: Other (See Below) Social & Family History - Family History Family Medical History: Noncontributory - Caffeine Use Caffeine Use: Reports: Soda ED ROS GENERAL - Review of Systems Review Of Systems: Comprehensive ROS is negative, except as noted in HPI. ED EXAM, GENERAL - Physical Exam Exam: See Below (See dictation) Course - Vital Signs Last Recorded V/S: Last Vital Signs Temp 96.5 F 07/24/19 11:00 Pulse 100 07/24/19 11:00 Resp 16 07/24/19 11:00 BP 128/85 07/24/19 11:00 Pulse Ox 99 07/24/19 11:00 - Orders/Labs/Meds Orders: Active Orders 24 hr Category Date Time Status Admission Status [Patient Status] [ADT] Stat ADT 07/24/19 13:28 Ordered EKG Documentation Completion [RC] STAT Care 07/24/19 10:44 Active EKG Documentation Completion [RC] STAT Care 07/24/19 13:07 Active RT Aerosol Therapy [RC] ASDIRECTED Care 07/24/19 10:48 Active Labs: Laboratory Tests 07/24/19 07/24/19 07/24/19 Range/Units 10:40 10:40 10:40 WBC 5.30 (4.0-11.0) K/uL RBC 4.64 (4.30-5.90) M/uL Hgb 13.7 (12.0-16.0) g/dL Hct 40.2 (36.0-46.0) % MCV 86.6 (80.0-98.0) fL MCH 29.5 (27.0-32.0) pg MCHC 34.1 (31.0-37.0) g/dL RDW Std Deviation 38.9 (28.0-62.0) fl RDW Coeff of Praveen 12 (11.0-15.0) % Plt Count 213 (150-400) K/uL MPV 10.40 (7.40-12.00) fL Neut % (Auto) 68.1 (48.0-80.0) % Lymph % (Auto) 23.8 (16.0-40.0) % [place] % (Auto) 4.7 (0.0-15.0) % Eos % (Auto) 2.5 (0.0-7.0) % Baso % (Auto) 0.9 (0.0-1.5) % Neut # (Auto) 3.6 (1.4-5.7) K/uL Lymph # (Auto) 1.3 (0.6-2.4) K/uL [place] # (Auto) 0.3 (0.0-0.8) K/uL Eos # (Auto) 0.1 (0.0-0.7) K/uL Baso # (Auto) 0.1 (0.0-0.1) K/uL Nucleated RBC % 0.0 /100WBC Nucleated RBCs # 0 K/uL INR D-Dimer, Quantitative 1.01 H (0.0-0.50) mg/L FEU Sodium 139 (136-145) mmol/L Potassium 4.8 (3.5-5.1) mmol/L Chloride 102 (98-107) mmol/L Carbon Dioxide 28.3 (21.0-32.0) mmol/L BUN 37 H (7.0-18.0) mg/dL Creatinine 1.6 H (0.6-1.0) mg/dL Est Cr Clr Drug Dosing 27.84 mL/min Estimated GFR (MDRD) 32.1 ml/min Glucose 93 (74-106) mg/dL Calcium 9.2 (8.5-10.1) mg/dL Total Bilirubin 0.6 (0.2-1.0) mg/dL AST 18 (15-37) IU/L ALT 23 (14-63) IU/L Alkaline Phosphatase 105 (46-116) U/L Troponin I (0.000-0.056) ng/mL Total Protein 7.6 (6.4-8.2) g/dL Albumin 4.0 (3.4-5.0) g/dL Globulin 3.6 (2.6-4.0) g/dL Albumin/Globulin Ratio 1.1 (0.9-1.6) Urine Color Urine Appearance Urine pH (5.0-8.0) Ur Specific [place] (1.001-1.035) Urine Protein (NEGATIVE) mg/dL Urine Glucose (UA) (NEGATIVE) mg/dL Urine Ketones (NEGATIVE) mg/dL Urine Occult Blood (NEGATIVE) Urine Nitrite (NEGATIVE) Urine Bilirubin (NEGATIVE) Urine Urobilinogen (<2.0) EU/dL Ur Leukocyte Esterase (NEGATIVE) Urine RBC (0-2/HPF) Urine WBC (0-5/HPF) Ur Epithelial Cells (NONE-FEW) Urine Bacteria (NEGATIVE) Urine Mucus (NONE-MOD) 07/24/19 07/24/19 07/24/19 Range/Units 10:40 10:40 11:24 WBC (4.0-11.0) K/uL RBC (4.30-5.90) M/uL Hgb (12.0-16.0) g/dL Hct (36.0-46.0) % MCV (80.0-98.0) fL MCH (27.0-32.0) pg MCHC (31.0-37.0) g/dL RDW Std Deviation (28.0-62.0) fl RDW Coeff of Prave[place] (11.0-15.0) % Plt Count (150-400) K/uL MPV (7.40-12.00) fL Neut % (Auto) (48.0-80.0) % Lymph % (Auto) (16.0-40.0) % [place] % (Auto) (0.0-15.0) % Eos % (Auto) (0.0-7.0) % Baso % (Auto) (0.0-1.5) % Neut # (Auto) (1.4-5.7) K/uL Lymph # (Auto) (0.6-2.4) K/uL [place] # (Auto) (0.0-0.8) K/uL Eos # (Auto) (0.0-0.7) K/uL Baso # (Auto) (0.0-0.1) K/uL Nucleated RBC % /100WBC Nucleated RBCs # K/uL INR 1.02 D-Dimer, Quantitative (0.0-0.50) mg/L FEU Sodium (136-145) mmol/L Potassium (3.5-5.1) mmol/L Chloride (98-107) mmol/L Carbon Dioxide (21.0-32.0) mmol/L BUN (7.0-18.0) mg/dL Creatinine (0.6-1.0) mg/dL Est Cr Clr Drug Dosing mL/min Estimated GFR (MDRD) ml/min Glucose (74-106) mg/dL Calcium (8.5-10.1) mg/dL Total Bilirubin (0.2-1.0) mg/dL AST (15-37) IU/L ALT (14-63) IU/L Alkaline Phosphatase (46-116) U/L Troponin I < 0.050 (0.000-0.056) ng/mL Total Protein (6.4-8.2) g/dL Albumin (3.4-5.0) g/dL Globulin (2.6-4.0) g/dL Albumin/Globulin Ratio (0.9-1.6) Urine Color YELLOW Urine Appearance CLEAR Urine pH 5.0 (5.0-8.0) Ur Specific [place] >= 1.030 (1.001-1.035) Urine Protein NEGATIVE (NEGATIVE) mg/dL Urine Glucose (UA) NEGATIVE (NEGATIVE) mg/dL Urine Ketones NEGATIVE (NEGATIVE) mg/dL Urine Occult Blood TRACE-INTACT H (NEGATIVE) Urine Nitrite NEGATIVE (NEGATIVE) Urine Bilirubin NEGATIVE (NEGATIVE) Urine Urobilinogen 0.2 (<2.0) EU/dL Ur Leukocyte Esterase NEGATIVE (NEGATIVE) Urine RBC 0-2 (0-2/HPF) Urine WBC 1-2 (0-5/HPF) Ur Epithelial Cells FEW (NONE-FEW) Urine Bacteria RARE (NEGATIVE) Urine Mucus LIGHT (NONE-MOD) Meds: Medications Discontinued Medications Generic Name Dose Route Start Last Admin Trade Name Freq PRN Reason Stop Dose Admin Albuterol/Ipratropium 3 ml 07/24/19 10:48 07/24/19 11:12 Duoneb 3.0-0.5 Mg/3 Ml NEB 07/24/19 10:49 3 ml ONETIME ONE Administration Sodium Chloride 1,000 mls @ 999 mls/hr 07/24/19 11:48 07/24/19 11:52 Normal Saline IV 07/24/19 12:48 999 mls/hr STAT ONE Administration Iopamidol 50 ml 07/24/19 12:05 07/24/19 12:25 Isovue Multipack-370 (76%) IVPUSH 07/24/19 12:06 50 ml ONETIME STA Administration Departure - Departure Time of Disposition: 13:34 Disposition: Refer to Observation Clinical Impression: Dyspnea Qualifiers: Dyspnea type: unspecified Qualified Code(s): R06.00 - Dyspnea, unspecified - Discharge Information Referrals: Tano Mahoney MD [Primary Care Provider] - Sepsis Event Note - Focused Exam Vital Signs: Vital Signs Temp Pulse Resp BP Pulse Ox 07/24/19 11:00 96.5 F 100 16 128/85 99 Date Exam was Performed: 07/24/19 Time Exam was Performed: 13:34 - My Orders Last 24 Hours: My Active Orders 07/24/19 10:44 EKG Documentation Completion [RC] STAT 07/24/19 10:48 RT Aerosol Therapy [RC] ASDIRECTED 07/24/19 13:07 EKG Documentation Completion [RC] STAT 07/24/19 13:28 Admission Status [Patient Status] [ADT] Stat - Assessment/Plan Last 24 Hours: My Active Orders 07/24/19 10:44 EKG Documentation Completion [RC] STAT 07/24/19 10:48 RT Aerosol Therapy [RC] ASDIRECTED 07/24/19 13:07 EKG Documentation Completion [RC] STAT 07/24/19 13:28 Admission Status [Patient Status] [ADT] Stat
[2019-07-24] MEDS ORDERED: Albuterol/Ipratropium 3.0-0.5 MG/3 ML Neb Soln NEB ONE (10:48)
[2019-07-24 11:18] LABS: CARBON DIOXIDE,CO2 28.3 mmol/L (21.0-32.0); POTASSIUM,K 4.8 mmol/L (3.5-5.1)
[2019-07-24] MEDS ORDERED: Sodium Chloride 0.9% 1,000 ML IV ONE (11:48)
[2019-07-24] MEDS ORDERED: Iopamidol 755 MG/ML 500 ML Multipack Bottle IVPUSH STA (12:05)
--- NOTE | 2019-07-24 12:06 | CR ---
Chest: 2 views of the chest were obtained. Comparison: No previous chest x-ray is available. Heart size is mildly enlarged. Electro-stimulating device is seen within the thoracic spine. Scattered disc space narrowing and endplate osteophytes are noted within the spine. Lungs are clear with no acute parenchymal change. Impression: 1. Nothing acute is appreciated on 2 view chest x-ray. 2. Nonacute findings as noted above. Diagnostic code #2 This report was dictated in [place] Standard Time
--- NOTE | 2019-07-24 12:53 | CT ---
CT chest Technique: Multiple axial sections through the chest were obtained. Intravenous contrast was utilized. Study performed as a pulmonary angiogram protocol. Findings: Pulmonary arteries are extremely suboptimally opacified. No gross filling defect within the main or proximal segmental branches. Other more distal pulmonary emboli could easily be missed. Ascending aorta is slightly aneurysmal at 4.2 cm. Descending aorta is normal with AP dimension 2.3 cm. Mild coronary artery calcification is seen. No mediastinal or hilar adenopathy is seen. No pericardial thickening is seen. Visualized upper abdominal structures shows no discrete abnormality. Lung window settings were reviewed. No acute parenchymal change is seen within either lung. No pleural effusions are seen. Bone window settings were reviewed which shows scattered degenerative change within the spine. Electro-stimulating wire is seen within the thoracic spine. Impression: 1. Suboptimally opacified pulmonary arteries. No gross pulmonary embolism within the main or proximal segmental branches. More distal pulmonary emboli could easily be missed. 2. Mild aneurysmal dilatation of the ascending aorta at 4.2 cm. 3. Mild coronary artery calcification. 4. Other findings believed to be incidental as noted above. Diagnostic code #3 This report was dictated in [place] Standard Time
[2019-07-24] MEDS ORDERED: Ondansetron 4 MG/2 ML SDV IVPUSH PRN (15:09)
[2019-07-24] MEDS ORDERED: Albuterol/Ipratropium 3.0-0.5 MG/3 ML Neb Soln NEB PRN (15:09)
[2019-07-24] MEDS ORDERED: Enoxaparin 40 MG/0.4 ML Syringe SUBCUT SCH (15:15)
--- NOTE | 2019-07-24 15:22 | PCM.HP.2 ---
H&P History of Present Illness - General Date of Service: 07/24/19 Admit Problem/Dx: Admission Diagnosis/Problem Admission Diagnosis/Problem Dyspnea Source of Information: Patient History Limitations: Reports: No Limitations - History of Present Illness Initial Comments - Free Text/Narative: This 69 year old female with pmh of HTN, obesity chronic back pain presented to the ED today with complaints of shortness of breath that started today. She said she work up feeling a little flushed and short of breath with activity. She denies any chest pain or palpitations. She denies recent illness, sore throat cough or sinus congestion. She denies abdominal pain or urinary concerns. No bowel habit concerns and no focal neurological deficits. She reports this shortness of breath is worse with activity and she has been sleeping on 2 pillows at home. She reports she feels she may have sleep apnea as she is always sleepy during the day and wakes up gasping at night. She denies In the ED CBC WNL. D dimer elevated at 1.01. BUN 37 and Cr 1.6. Troponin negative. CXR showed mild cardiomegaly no congestion. CT angio obtianed to rule out PE, which did rule out PE but did show ascending aortic aneurysm, measuring 4.2. Scapular pain was noted in the ED after 30 minutes of arrival. EKG SR with no ST elevation and troponin negative. PCP, DR Mahoney - Related Data Allergies/Adverse Reactions: Allergies Allergy/AdvReac Type Severity Reaction Status Date / Time ampicillin Allergy Hives Verified 07/24/19 14:34 Sulfa (Sulfonamide Allergy Hives Verified 07/24/19 14:34 Antibiotics) Home Medications: Home Meds Desvenlafaxine Succinate [Pristiq] 100 mg PO BEDTIME 10/26/18 [History] Diclofenac Sodium/Misoprostol [Arthrotec EC 50 mg-200 Mcg Tab] 1 each PO BID [History] Docusate Sodium [Stool Softener] 50 mg PO ASDIRECTED 12/04/18 [History] Famotidine 20 mg PO BID 07/24/19 [History] hydroCHLOROthiazide [Hydrochlorothiazide] 25 mg PO DAILY 07/24/19 [History] Past Medical History HEENT History: Reports: None Cardiovascular History: Reports: Hypertension. Denies: CAD Respiratory History: Reports: None. Denies: COPD Gastrointestinal History: Reports: Hemorrhoids, Other (See Below) Other Gastrointestinal History: partial obstruction on her small intestine Genitourinary History: Reports: None [employer] History: Reports: Musculoskeletal History: Reports: Arthritis Neurological History: Reports: None. Denies: CVA, TIA Psychiatric History: Reports: Depression Endocrine/Metabolic History: Reports: None Hematologic History: Reports: None Immunologic History: Reports: None Oncologic (Cancer) History: Reports: None Dermatologic History: Reports: None - Infectious Disease History Infectious Disease History: Reports: Chicken Pox, Measles - Past Surgical History GI Surgical History: Reports: Colonoscopy, EGD Neurological Surgical History: Reports: Other (See Below) Social & Family History - Family History Family Medical History: Noncontributory - Tobacco Use Smoking Status *Q: Never Smoker - Caffeine Use Caffeine Use: Reports: Soda - Alcohol Use Alcohol Use History: No - Recreational Drug Use Recreational Drug Use: No - Living Situation & Occupation 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 Denies: Fever, Chills, Malaise HEENT: Reports: No Symptoms. Denies: Headaches, Sinus Congestion, Sore Throat Pulmonary: Reports: Shortness of Breath, Wheezing, Cough, Sputum (white) Cardiovascular: Reports: No Symptoms. Denies: Chest Pain, Palpitations, Lightheadedness Gastrointestinal: Reports: No Symptoms. Denies: Abdominal Pain, Black Stool, Bloody Stool Genitourinary: Reports: No Symptoms. Denies: Dysuria, Frequency, Burning Skin: Reports: No Symptoms Psychiatric: Reports: No Symptoms Neurological: Reports: No Symptoms Hematologic/Lymphatic: Reports: No Symptoms Immunologic: Reports: No Symptoms Exam - Exam Exam: See Below - Vital Signs Vital Signs: Last Vital Signs Temp 97.2 F 07/24/19 14:00 Pulse 64 07/24/19 14:00 Resp 18 07/24/19 14:00 BP 126/72 07/24/19 14:00 Pulse Ox 100 07/24/19 14:00 Weight: 96.162 kg - Exam Quality Assessment: No: Supplemental Oxygen General: Alert, Oriented Neck: Supple, Trachea Midline Lungs: Clear to Auscultation, Normal Respiratory Effort Cardiovascular: Regular Rate, Regular Rhythm GI/Abdominal Exam: Normal Bowel Sounds, Soft, Non-Tender Back Exam: Normal Inspection, Full Range of Motion Extremities: Normal Inspection, Normal Range of Motion, Non-Tender, No Pedal Edema Neuro Extensive - Mental Status: Alert, Oriented x3 Neuro Extensive - Motor, Sensory, Reflexes: CN II-XII Intact, Normal Gait Psychiatric: Alert, Normal Affect, Normal Mood - Patient Data Lab Results Last 24 hrs: Laboratory Results - last 24 hr 07/24/19 07/24/19 07/24/19 Range/Units 10:40 10:40 10:40 WBC 5.30 (4.0-11.0) K/uL RBC 4.64 (4.30-5.90) M/uL Hgb 13.7 (12.0-16.0) g/dL Hct 40.2 (36.0-46.0) % MCV 86.6 (80.0-98.0) fL MCH 29.5 (27.0-32.0) pg MCHC 34.1 (31.0-37.0) g/dL RDW Std Deviation 38.9 (28.0-62.0) fl RDW Coeff of Praveen 12 (11.0-15.0) % Plt Count 213 (150-400) K/uL MPV 10.40 (7.40-12.00) fL Neut % (Auto) 68.1 (48.0-80.0) % Lymph % (Auto) 23.8 (16.0-40.0) % [place] % (Auto) 4.7 (0.0-15.0) % Eos % (Auto) 2.5 (0.0-7.0) % Baso % (Auto) 0.9 (0.0-1.5) % Neut # (Auto) 3.6 (1.4-5.7) K/uL Lymph # (Auto) 1.3 (0.6-2.4) K/uL [place] # (Auto) 0.3 (0.0-0.8) K/uL Eos # (Auto) 0.1 (0.0-0.7) K/uL Baso # (Auto) 0.1 (0.0-0.1) K/uL Nucleated RBC % 0.0 /100WBC Nucleated RBCs # 0 K/uL INR D-Dimer, Quantitative 1.01 H (0.0-0.50) mg/L FEU Sodium 139 (136-145) mmol/L Potassium 4.8 (3.5-5.1) mmol/L Chloride 102 (98-107) mmol/L Carbon Dioxide 28.3 (21.0-32.0) mmol/L BUN 37 H (7.0-18.0) mg/dL Creatinine 1.6 H (0.6-1.0) mg/dL Est Cr Clr Drug Dosing 27.84 mL/min Estimated GFR (MDRD) 32.1 ml/min Glucose 93 (74-106) mg/dL Calcium 9.2 (8.5-10.1) mg/dL Total Bilirubin 0.6 (0.2-1.0) mg/dL AST 18 (15-37) IU/L ALT 23 (14-63) IU/L Alkaline Phosphatase 105 (46-116) U/L Troponin I (0.000-0.056) ng/mL Total Protein 7.6 (6.4-8.2) g/dL Albumin 4.0 (3.4-5.0) g/dL Globulin 3.6 (2.6-4.0) g/dL Albumin/Globulin Ratio 1.1 (0.9-1.6) Urine Color Urine Appearance Urine pH (5.0-8.0) Ur Specific Glen (1.001-1.035) Urine Protein (NEGATIVE) mg/dL Urine Glucose (UA) (NEGATIVE) mg/dL Urine Ketones (NEGATIVE) mg/dL Urine Occult Blood (NEGATIVE) Urine Nitrite (NEGATIVE) Urine Bilirubin (NEGATIVE) Urine Urobilinogen (<2.0) EU/dL Ur Leukocyte Esterase (NEGATIVE) Urine RBC (0-2/HPF) Urine WBC (0-5/HPF) Ur Epithelial Cells (NONE-FEW) Urine Bacteria (NEGATIVE) Urine Mucus (NONE-MOD) 07/24/19 07/24/19 07/24/19 Range/Units 10:40 10:40 11:24 WBC (4.0-11.0) K/uL RBC (4.30-5.90) M/uL Hgb (12.0-16.0) g/dL Hct (36.0-46.0) % MCV (80.0-98.0) fL MCH (27.0-32.0) pg MCHC (31.0-37.0) g/dL RDW Std Deviation (28.0-62.0) fl RDW Coeff of Praveen (11.0-15.0) % Plt Count (150-400) K/uL MPV (7.40-12.00) fL Neut % (Auto) (48.0-80.0) % Lymph % (Auto) (16.0-40.0) % [place] % (Auto) (0.0-15.0) % Eos % (Auto) (0.0-7.0) % Baso % (Auto) (0.0-1.5) % Neut # (Auto) (1.4-5.7) K/uL Lymph # (Auto) (0.6-2.4) K/uL [place] # (Auto) (0.0-0.8) K/uL Eos # (Auto) (0.0-0.7) K/uL Baso # (Auto) (0.0-0.1) K/uL Nucleated RBC % /100WBC Nucleated RBCs # K/uL INR 1.02 D-Dimer, Quantitative (0.0-0.50) mg/L FEU Sodium (136-145) mmol/L Potassium (3.5-5.1) mmol/L Chloride (98-107) mmol/L Carbon Dioxide (21.0-32.0) mmol/L BUN (7.0-18.0) mg/dL Creatinine (0.6-1.0) mg/dL Est Cr Clr Drug Dosing mL/min Estimated GFR (MDRD) ml/min Glucose (74-106) mg/dL Calcium (8.5-10.1) mg/dL Total Bilirubin (0.2-1.0) mg/dL AST (15-37) IU/L ALT (14-63) IU/L Alkaline Phosphatase (46-116) U/L Troponin I < 0.050 (0.000-0.056) ng/mL Total Protein (6.4-8.2) g/dL Albumin (3.4-5.0) g/dL Globulin (2.6-4.0) g/dL Albumin/Globulin Ratio (0.9-1.6) Urine Color YELLOW Urine Appearance CLEAR Urine pH 5.0 (5.0-8.0) Ur Specific Glen >= 1.030 (1.001-1.035) Urine Protein NEGATIVE (NEGATIVE) mg/dL Urine Glucose (UA) NEGATIVE (NEGATIVE) mg/dL Urine Ketones NEGATIVE (NEGATIVE) mg/dL Urine Occult Blood TRACE-INTACT H (NEGATIVE) Urine Nitrite NEGATIVE (NEGATIVE) Urine Bilirubin NEGATIVE (NEGATIVE) Urine Urobilinogen 0.2 (<2.0) EU/dL Ur Leukocyte Esterase NEGATIVE (NEGATIVE) Urine RBC 0-2 (0-2/HPF) Urine WBC 1-2 (0-5/HPF) Ur Epithelial Cells FEW (NONE-FEW) Urine Bacteria RARE (NEGATIVE) Urine Mucus LIGHT (NONE-MOD) Result Diagrams: 07/24/19 10:40 07/24/19 10:40 Omid Results Last 24 hrs: Microbiology 07/24/19 10:49 Influenza Type A Antigen Screen - Final Nasopharyngeal Swab NEGATIVE INFLUENZA A VIRUS AG REFERENCE RANGE: NEGATIVE Influenza Type B Antigen Screen - Final NEGATIVE INFLUENZA B VIRUS AG REFERENCE RANGE: NEGATIVE Sepsis Event Note - Evaluation Sepsis Screening Result: No Definite Risk - Focused Exam Vital Signs: Vital Signs Temp Pulse Resp BP Pulse Ox 07/24/19 14:00 97.2 F 64 18 126/72 100 07/24/19 13:40 60 18 121/77 99 07/24/19 11:00 96.5 F 100 16 128/85 99 Date Exam was Performed: 07/24/19 Time Exam was Performed: 16:33 - Problem List (1) Ascending aorta dilation SNOMED Code(s): 697720341 ICD Code: I77.810 - THORACIC AORTIC ECTASIA Status: Acute Current Visit: Yes (2) Dyspnea SNOMED Code(s): 635541255 ICD Code: R06.00 - DYSPNEA, UNSPECIFIED Status: Acute Current Visit: Yes Qualifiers: Dyspnea type: unspecified Qualified Code(s): R06.00 - Dyspnea, unspecified (3) Chest pain SNOMED Code(s): 71507336 ICD Code: R07.9 - CHEST PAIN, UNSPECIFIED Status: Acute Current Visit: Yes Problem List Initiated/Reviewed/Updated: Yes Orders Last 24hrs: Active Orders 24 hr Category Date Time Status Admission Status [Patient Status] [ADT] Stat ADT 07/24/19 13:28 Active EKG Documentation Completion [RC] STAT Care 07/24/19 10:44 Active EKG Documentation Completion [RC] STAT Care 07/24/19 13:07 Active Height and Weight [RC] DAILY Care 07/24/19 15:09 Ordered Oxygen Therapy [RC] PRN Care 07/24/19 15:09 Ordered RT Aerosol Therapy [RC] ASDIRECTED Care 07/24/19 10:48 Active RT Aerosol Therapy [RC] ASDIRECTED Care 07/24/19 15:12 Ordered Telemetry Monitoring [Cardiac Monitoring] [RC] . Care 07/24/19 15:08 Ordered DIRECTED Up With Assistance [RC] ASDIRECTED Care 07/24/19 15:09 Ordered VTE/DVT Education [RC] PER UNIT ROUTINE Care 07/24/19 15:09 Ordered Vital Signs [RC] Q4H Care 07/24/19 15:09 Ordered 2 Gram Sodium Diet [DIET] Diet 07/24/19 Lunch Ordered Echo Comp wo Cont [US] Routine Exams 07/24/19 15:09 Ordered MAGNESIUM [CHEM] Routine Lab 07/24/19 15:09 Ordered Acetaminophen [Tylenol] Med 07/24/19 15:09 Ordered 650 mg PO Q4H PRN Albuterol/Ipratropium [DuoNeb 3.0-0.5 MG/3 ML] Med 07/24/19 15:09 Ordered 3 ml NEB Q4HRRT PRN Desvenlafaxine Succinate [Pristiq] Med 07/24/19 21:00 Ordered 100 mg PO BEDTIME Diclofenac Sodium/Misoprostol [Arthrotec 50 mg-200 Mcg Med 07/24/19 21:00 Ordered Tab] 1 each PO BID Enoxaparin [Lovenox] Med 07/24/19 15:15 Ordered 40 mg SUBCUT Q24H Famotidine [Pepcid] Med 07/24/19 21:00 Ordered 20 mg PO BID Ondansetron [Zofran] Med 07/24/19 15:09 Ordered 4 mg IVPUSH Q4H PRN hydroCHLOROthiazide Med 07/25/19 09:00 Ordered 25 mg PO DAILY Resuscitation Status Routine Resus Stat 07/24/19 15:09 Ordered Medication Orders Acetaminophen (Tylenol) 650 mg PO Q4H PRN PRN Reason: Pain (mild 1-3) Albuterol/Ipratropium (Duoneb 3.0-0.5 Mg/3 Ml) 3 ml NEB Q4HRRT PRN PRN Reason: Shortness Of Breath/wheezing Enoxaparin Sodium (Lovenox) 40 mg SUBCUT Q24H MARY Ondansetron HCl (Zofran) 4 mg IVPUSH Q4H PRN PRN Reason: Nausea Assessment/Plan Comment:: This 69 year old female admitted with dyspnea and chest pain 1. Chest pain: Started in ED more as scapular pain. No further pain. Trend troponin. Monitor on Telemetry. A1c WNL. Lipid panel in am. 2. Dyspnea: Improved some, will obtain ECHO due to orthopnea and possible AURELIO concerns. Arrange outpatient sleep study, concerned for pulmonary HTN 3. Aortic dilation: will arrange follow up with cardiovascular surgeon for monitoring. Had no knowledge of this, now is aware. VTE prophylaxis: Lovenox Dispo: 1 day - Mortality Measure Prognosis:: Good
[2019-07-24] MEDS: Acetaminophen 325 MG Tab PO PRN ×2 (15:45→20:09)
[2019-07-24 15:52] LABS: HEMOGLOBIN A1C 5.4 % (4.5-6.2)
[2019-07-24] MEDS: Famotidine 20 MG Tab PO SCH (20:10)
[2019-07-24] MEDS ORDERED: [UNRECOGNIZED DRUG - OTHER] PO SCH (21:00)
[2019-07-24] MEDS ORDERED: Desvenlafaxine Succinate [Pristiq] 100 MG PO SCH (21:00)
[2019-07-24] MEDS ORDERED: MISOPROSTOL PO SCH (21:00)
[2019-07-24] MEDS ORDERED: DICLOFENAC SODIUM PO SCH (21:00)
[2019-07-25 06:14] LABS: CARBON DIOXIDE,CO2 27.3 mmol/L (21.0-32.0); POTASSIUM,K 5.3 mmol/L (3.5-5.1)
[2019-07-25] MEDS ORDERED: Ibuprofen 400 MG Tab PO ONE (08:49)
[2019-07-25] MEDS ORDERED: Hydrochlorothiazide 25 MG Tab PO SCH (09:00)
[2019-07-25] MEDS: Famotidine 20 MG Tab PO SCH (09:37)
[2019-07-25 10:54] VITALS: BP 101/78; PULSE 63
--- NOTE | 2019-07-25 11:03 | PCM.DCSUM1 ---
Discharge Summary - Hospital Course Brief History: This 69 year old female with pmh of HTN, obesity chronic back pain presented to the ED today with complaints of shortness of breath that started today. She said she work up feeling a little flushed and short of breath with activity. She denies any chest pain or palpitations. She denies recent illness, sore throat cough or sinus congestion. She denies abdominal pain or urinary concerns. No bowel habit concerns and no focal neurological deficits. She reports this shortness of breath is worse with activity and she has been sleeping on 2 pillows at home. She reports she feels she may have sleep apnea as she is always sleepy during the day and wakes up gasping at night. She denies. In the ED CBC WNL. D dimer elevated at 1.01. BUN 37 and Cr 1.6. Troponin negative. CXR showed mild cardiomegaly no congestion. CT angio obtianed to rule out PE, which did rule out PE but did show ascending aortic aneurysm, measuring 4.2. Scapular pain was noted in the ED after 30 minutes of arrival. EKG SR with no ST elevation and troponin negative. PCP, DR Mahoney Diagnosis: Stroke: No Modified [place] Scale: No Symptoms at All Modified Ilana Scale Score: 0 - Discharge Data Discharge Date: 07/25/19 Discharge Disposition: Home, Self-Care 01 Condition: Good - Referral to Home Health Primary Care Physician: Tano Mahoney MD - Discharge Diagnosis/Problem(s) (1) Ascending aorta dilation SNOMED Code(s): 954179209 ICD Code: I77.810 - THORACIC AORTIC ECTASIA Status: Acute Current Visit: Yes (2) Dyspnea SNOMED Code(s): 815676802 ICD Code: R06.00 - DYSPNEA, UNSPECIFIED Status: Acute Current Visit: Yes Qualifiers: Dyspnea type: unspecified Qualified Code(s): R06.00 - Dyspnea, unspecified (3) Chest pain SNOMED Code(s): 63335358 ICD Code: R07.9 - CHEST PAIN, UNSPECIFIED Status: Acute Current Visit: Yes - Patient Instructions Diet: Regular Diet as Tolerated Activity: As Tolerated Showering/Bathing: May Shower Notify Provider of: Fever, Increased Pain, Swelling and Redness, Drainage, Nausea and/or Vomiting - Discharge Plan *PRESCRIPTION DRUG MONITORING PROGRAM REVIEWED*: Not Applicable *COPY OF PRESCRIPTION DRUG MONITORING REPORT IN PATIENT MARILEE: Not Applicable Home Medications: Home Meds Desvenlafaxine Succinate [Pristiq] 100 mg PO BEDTIME 10/26/18 [History] Diclofenac Sodium/Misoprostol [Arthrotec 50 mg-200 Mcg Tab] 1 each PO BID [History] Docusate Sodium [Stool Softener] 50 mg PO ASDIRECTED 12/04/18 [History] Famotidine 20 mg PO BID 07/24/19 [History] hydroCHLOROthiazide [Hydrochlorothiazide] 25 mg PO DAILY 07/24/19 [History] Oxygen Therapy Mode: Room Air Patient Handouts: Shortness of Breath, Adult, [id number], Nonspecific Chest Pain, [id number] Referrals: [facility] [Outside] Tano Mahoney MD [Primary Care Provider] - 08/04/19 3:00 pm (1 week) - Discharge Summary/Plan Comment DC Time >30 min.: No Discharge Summary/Plan Comment: Admitting Diagnoses: Chest pain Dyspnea Discharge Diagnoses: Chest pain Dyspnea Other PMH: Chronic back pain Alicia was admitted with chest pain and dyspnea. She feels much improved today and is eager for discharge. Troponins negative. No changes on telemetry. ECHO is pending on discharge. I will refer for sleep study as an outpatient. We did discuss follow up for surveillance of her ascending aortic aneurysm with PCP. She will be scheduled for outpatient stress test as well. She is to return to the ED or clinic if concerns should arise. - General Info Date of Service: 07/25/19 - Review of Systems General: Reports: No Symptoms. Denies: Fever, Weakness HEENT: Reports: No Symptoms. Denies: Sore Throat Pulmonary: Reports: No Symptoms. Denies: Shortness of Breath Cardiovascular: Reports: No Symptoms. Denies: Chest Pain Gastrointestinal: Reports: No Symptoms. Denies: Abdominal Pain, Nausea, Vomiting Skin: Reports: No Symptoms Neurological: Reports: No Symptoms Psychiatric: Reports: No Symptoms - Patient Data Vitals - Most Recent: Last Vital Signs Temp 97.2 F 07/25/19 08:00 Pulse 63 07/25/19 08:00 Resp 16 07/25/19 08:00 BP 101/78 07/25/19 08:00 Pulse Ox 99 07/25/19 08:00 Weight - Most Recent: 95.39 kg I&O - Last 24 hours: Intake & Output 07/24/19 07/25/19 07/25/19 22:59 06:59 14:59 Intake Total 100 1840 Output Total 500 2100 Balance -400 -260 Lab Results - Last 24 hrs: Laboratory Results - last 24 hr 07/24/19 07/24/19 07/24/19 Range/Units 10:40 10:40 10:40 WBC 5.30 (4.0-11.0) K/uL RBC 4.64 (4.30-5.90) M/uL Hgb 13.7 (12.0-16.0) g/dL Hct 40.2 (36.0-46.0) % MCV 86.6 (80.0-98.0) fL MCH 29.5 (27.0-32.0) pg MCHC 34.1 (31.0-37.0) g/dL RDW Std Deviation 38.9 (28.0-62.0) fl RDW Coeff of Praveen 12 (11.0-15.0) % Plt Count 213 (150-400) K/uL MPV 10.40 (7.40-12.00) fL Neut % (Auto) 68.1 (48.0-80.0) % Lymph % (Auto) 23.8 (16.0-40.0) % Cook % (Auto) 4.7 (0.0-15.0) % Eos % (Auto) 2.5 (0.0-7.0) % Baso % (Auto) 0.9 (0.0-1.5) % Neut # (Auto) 3.6 (1.4-5.7) K/uL Lymph # (Auto) 1.3 (0.6-2.4) K/uL Cook # (Auto) 0.3 (0.0-0.8) K/uL Eos # (Auto) 0.1 (0.0-0.7) K/uL Baso # (Auto) 0.1 (0.0-0.1) K/uL Nucleated RBC % 0.0 /100WBC Nucleated RBCs # 0 K/uL INR D-Dimer, Quantitative 1.01 H (0.0-0.50) mg/L FEU Sodium 139 (136-145) mmol/L Potassium 4.8 (3.5-5.1) mmol/L Chloride 102 (98-107) mmol/L Carbon Dioxide 28.3 (21.0-32.0) mmol/L BUN 37 H (7.0-18.0) mg/dL Creatinine 1.6 H (0.6-1.0) mg/dL Est Cr Clr Drug Dosing 27.84 mL/min Estimated GFR (MDRD) 32.1 ml/min Glucose 93 (74-106) mg/dL Hemoglobin A1c (4.5-6.2) % Calcium 9.2 (8.5-10.1) mg/dL Magnesium (1.8-2.4) mg/dL Total Bilirubin 0.6 (0.2-1.0) mg/dL AST 18 (15-37) IU/L ALT 23 (14-63) IU/L Alkaline Phosphatase 105 (46-116) U/L Troponin I (0.000-0.056) ng/mL Total Protein 7.6 (6.4-8.2) g/dL Albumin 4.0 (3.4-5.0) g/dL Globulin 3.6 (2.6-4.0) g/dL Albumin/Globulin Ratio 1.1 (0.9-1.6) Triglycerides (0-200) mg/dL Cholesterol (50-200) mg/dL LDL Cholesterol, Calc (60-180) mg/dL VLDL Cholesterol (5-55) mg/dL HDL Cholesterol (40-60) mg/dL Cholesterol/HDL Ratio (3.3-6.0) Urine Color Urine Appearance Urine pH (5.0-8.0) Ur Specific [place] (1.001-1.035) Urine Protein (NEGATIVE) mg/dL Urine Glucose (UA) (NEGATIVE) mg/dL Urine Ketones (NEGATIVE) mg/dL Urine Occult Blood (NEGATIVE) Urine Nitrite (NEGATIVE) Urine Bilirubin (NEGATIVE) Urine Urobilinogen (<2.0) EU/dL Ur Leukocyte Esterase (NEGATIVE) Urine RBC (0-2/HPF) Urine WBC (0-5/HPF) Ur Epithelial Cells (NONE-FEW) Urine Bacteria (NEGATIVE) Urine Mucus (NONE-MOD) 07/24/19 07/24/19 07/24/19 Range/Units 10:40 10:40 10:40 WBC (4.0-11.0) K/uL RBC (4.30-5.90) M/uL Hgb (12.0-16.0) g/dL Hct (36.0-46.0) % MCV (80.0-98.0) fL MCH (27.0-32.0) pg MCHC (31.0-37.0) g/dL RDW Std Deviation (28.0-62.0) fl RDW Coeff of Prvaeen (11.0-15.0) % Plt Count (150-400) K/uL MPV (7.40-12.00) fL Neut % (Auto) (48.0-80.0) % Lymph % (Auto) (16.0-40.0) % Cook % (Auto) (0.0-15.0) % Eos % (Auto) (0.0-7.0) % Baso % (Auto) (0.0-1.5) % Neut # (Auto) (1.4-5.7) K/uL Lymph # (Auto) (0.6-2.4) K/uL Cook # (Auto) (0.0-0.8) K/uL Eos # (Auto) (0.0-0.7) K/uL Baso # (Auto) (0.0-0.1) K/uL Nucleated RBC % /100WBC Nucleated RBCs # K/uL INR 1.02 D-Dimer, Quantitative (0.0-0.50) mg/L FEU Sodium (136-145) mmol/L Potassium (3.5-5.1) mmol/L Chloride (98-107) mmol/L Carbon Dioxide (21.0-32.0) mmol/L BUN (7.0-18.0) mg/dL Creatinine (0.6-1.0) mg/dL Est Cr Clr Drug Dosing mL/min Estimated GFR (MDRD) ml/min Glucose (74-106) mg/dL Hemoglobin A1c (4.5-6.2) % Calcium (8.5-10.1) mg/dL Magnesium 1.9 (1.8-2.4) mg/dL Total Bilirubin (0.2-1.0) mg/dL AST (15-37) IU/L ALT (14-63) IU/L Alkaline Phosphatase (46-116) U/L Troponin I < 0.050 (0.000-0.056) ng/mL Total Protein (6.4-8.2) g/dL Albumin (3.4-5.0) g/dL Globulin (2.6-4.0) g/dL Albumin/Globulin Ratio (0.9-1.6) Triglycerides (0-200) mg/dL Cholesterol (50-200) mg/dL LDL Cholesterol, Calc (60-180) mg/dL VLDL Cholesterol (5-55) mg/dL HDL Cholesterol (40-60) mg/dL Cholesterol/HDL Ratio (3.3-6.0) Urine Color Urine Appearance Urine pH (5.0-8.0) Ur Specific [place] (1.001-1.035) Urine Protein (NEGATIVE) mg/dL Urine Glucose (UA) (NEGATIVE) mg/dL Urine Ketones (NEGATIVE) mg/dL Urine Occult Blood (NEGATIVE) Urine Nitrite (NEGATIVE) Urine Bilirubin (NEGATIVE) Urine Urobilinogen (<2.0) EU/dL Ur Leukocyte Esterase (NEGATIVE) Urine RBC (0-2/HPF) Urine WBC (0-5/HPF) Ur Epithelial Cells (NONE-FEW) Urine Bacteria (NEGATIVE) Urine Mucus (NONE-MOD) 07/24/19 07/24/19 07/24/19 Range/Units 10:40 11:24 16:32 WBC (4.0-11.0) K/uL RBC (4.30-5.90) M/uL Hgb (12.0-16.0) g/dL Hct (36.0-46.0) % MCV (80.0-98.0) fL MCH (27.0-32.0) pg MCHC (31.0-37.0) g/dL RDW Std Deviation (28.0-62.0) fl RDW Coeff of Praveen (11.0-15.0) % Plt Count (150-400) K/uL MPV (7.40-12.00) fL Neut % (Auto) (48.0-80.0) % Lymph % (Auto) (16.0-40.0) % Cook % (Auto) (0.0-15.0) % Eos % (Auto) (0.0-7.0) % Baso % (Auto) (0.0-1.5) % Neut # (Auto) (1.4-5.7) K/uL Lymph # (Auto) (0.6-2.4) K/uL Cook # (Auto) (0.0-0.8) K/uL Eos # (Auto) (0.0-0.7) K/uL Baso # (Auto) (0.0-0.1) K/uL Nucleated RBC % /100WBC Nucleated RBCs # K/uL INR D-Dimer, Quantitative (0.0-0.50) mg/L FEU Sodium (136-145) mmol/L Potassium (3.5-5.1) mmol/L Chloride (98-107) mmol/L Carbon Dioxide (21.0-32.0) mmol/L BUN (7.0-18.0) mg/dL Creatinine (0.6-1.0) mg/dL Est Cr Clr Drug Dosing mL/min Estimated GFR (MDRD) ml/min Glucose (74-106) mg/dL Hemoglobin A1c 5.4 (4.5-6.2) % Calcium (8.5-10.1) mg/dL Magnesium (1.8-2.4) mg/dL Total Bilirubin (0.2-1.0) mg/dL AST (15-37) IU/L ALT (14-63) IU/L Alkaline Phosphatase (46-116) U/L Troponin I < 0.050 (0.000-0.056) ng/mL Total Protein (6.4-8.2) g/dL Albumin (3.4-5.0) g/dL Globulin (2.6-4.0) g/dL Albumin/Globulin Ratio (0.9-1.6) Triglycerides (0-200) mg/dL Cholesterol (50-200) mg/dL LDL Cholesterol, Calc (60-180) mg/dL VLDL Cholesterol (5-55) mg/dL HDL Cholesterol (40-60) mg/dL Cholesterol/HDL Ratio (3.3-6.0) Urine Color YELLOW Urine Appearance CLEAR Urine pH 5.0 (5.0-8.0) Ur Specific [place] >= 1.030 (1.001-1.035) Urine Protein NEGATIVE (NEGATIVE) mg/dL Urine Glucose (UA) NEGATIVE (NEGATIVE) mg/dL Urine Ketones NEGATIVE (NEGATIVE) mg/dL Urine Occult Blood TRACE-INTACT H (NEGATIVE) Urine Nitrite NEGATIVE (NEGATIVE) Urine Bilirubin NEGATIVE (NEGATIVE) Urine Urobilinogen 0.2 (<2.0) EU/dL Ur Leukocyte Esterase NEGATIVE (NEGATIVE) Urine RBC 0-2 (0-2/HPF) Urine WBC 1-2 (0-5/HPF) Ur Epithelial Cells FEW (NONE-FEW) Urine Bacteria RARE (NEGATIVE) Urine Mucus LIGHT (NONE-MOD) 07/24/19 07/25/19 Range/Units 22:36 05:41 WBC (4.0-11.0) K/uL RBC (4.30-5.90) M/uL Hgb (12.0-16.0) g/dL Hct (36.0-46.0) % MCV (80.0-98.0) fL MCH (27.0-32.0) pg MCHC (31.0-37.0) g/dL RDW Std Deviation (28.0-62.0) fl RDW Coeff of Praveen (11.0-15.0) % Plt Count (150-400) K/uL MPV (7.40-12.00) fL Neut % (Auto) (48.0-80.0) % Lymph % (Auto) (16.0-40.0) % Cook % (Auto) (0.0-15.0) % Eos % (Auto) (0.0-7.0) % Baso % (Auto) (0.0-1.5) % Neut # (Auto) (1.4-5.7) K/uL Lymph # (Auto) (0.6-2.4) K/uL Cook # (Auto) (0.0-0.8) K/uL Eos # (Auto) (0.0-0.7) K/uL Baso # (Auto) (0.0-0.1) K/uL Nucleated RBC % /100WBC Nucleated RBCs # K/uL INR D-Dimer, Quantitative (0.0-0.50) mg/L FEU Sodium 138 (136-145) mmol/L Potassium 5.3 H (3.5-5.1) mmol/L Chloride 103 (98-107) mmol/L Carbon Dioxide 27.3 (21.0-32.0) mmol/L BUN 32 H (7.0-18.0) mg/dL Creatinine 1.3 H (0.6-1.0) mg/dL Est Cr Clr Drug Dosing 34.26 mL/min Estimated GFR (MDRD) 40.7 ml/min Glucose 109 H (74-106) mg/dL Hemoglobin A1c (4.5-6.2) % Calcium 9.2 (8.5-10.1) mg/dL Magnesium (1.8-2.4) mg/dL Total Bilirubin (0.2-1.0) mg/dL AST (15-37) IU/L ALT (14-63) IU/L Alkaline Phosphatase (46-116) U/L Troponin I < 0.050 (0.000-0.056) ng/mL Total Protein (6.4-8.2) g/dL Albumin (3.4-5.0) g/dL Globulin (2.6-4.0) g/dL Albumin/Globulin Ratio (0.9-1.6) Triglycerides 81 (0-200) mg/dL Cholesterol 220 H (50-200) mg/dL LDL Cholesterol, Calc 137 (60-180) mg/dL VLDL Cholesterol 16 (5-55) mg/dL HDL Cholesterol 67 H (40-60) mg/dL Cholesterol/HDL Ratio 3.3 (3.3-6.0) Urine Color Urine Appearance Urine pH (5.0-8.0) Ur Specific [place] (1.001-1.035) Urine Protein (NEGATIVE) mg/dL Urine Glucose (UA) (NEGATIVE) mg/dL Urine Ketones (NEGATIVE) mg/dL Urine Occult Blood (NEGATIVE) Urine Nitrite (NEGATIVE) Urine Bilirubin (NEGATIVE) Urine Urobilinogen (<2.0) EU/dL Ur Leukocyte Esterase (NEGATIVE) Urine RBC (0-2/HPF) Urine WBC (0-5/HPF) Ur Epithelial Cells (NONE-FEW) Urine Bacteria (NEGATIVE) Urine Mucus (NONE-MOD) JULIA Results - Last 24 hrs: Microbiology 07/24/19 10:49 Influenza Type A Antigen Screen - Final Nasopharyngeal Swab NEGATIVE INFLUENZA A VIRUS AG REFERENCE RANGE: NEGATIVE Influenza Type B Antigen Screen - Final NEGATIVE INFLUENZA B VIRUS AG REFERENCE RANGE: NEGATIVE Med Orders - Current: Current Medications Acetaminophen (Tylenol) 650 mg PO Q4H PRN PRN Reason: Pain (mild 1-3) Last Admin: 07/24/19 20:09 Dose: 650 mg Albuterol/Ipratropium (Duoneb 3.0-0.5 Mg/3 Ml) 3 ml NEB Q4HRRT PRN PRN Reason: Shortness Of Breath/wheezing Last Admin: 07/24/19 20:21 Dose: 3 ml Enoxaparin Sodium (Lovenox) 40 mg SUBCUT Q24H [facility] Last Admin: 07/24/19 15:44 Dose: 40 mg Famotidine (Pepcid) 20 mg PO BID [facility] Last Admin: 07/25/19 09:37 Dose: 20 mg Hydrochlorothiazide (Hydrochlorothiazide) 25 mg PO DAILY [facility] Last Admin: 07/25/19 09:37 Dose: 25 mg Ondansetron HCl (Zofran) 4 mg IVPUSH Q4H PRN PRN Reason: Nausea Desvenlafaxine Succinate [Pristiq] 100 Mg 1 each PO BEDTIME [facility] Last Admin: 07/24/19 21:46 Dose: Not Given Discontinued Medications Albuterol/Ipratropium (Duoneb 3.0-0.5 Mg/3 Ml) 3 ml NEB ONETIME ONE Stop: 07/24/19 10:49 Last Admin: 07/24/19 11:12 Dose: 3 ml Sodium Chloride (Normal Saline) 1,000 mls @ 999 mls/hr IV STAT ONE Stop: 07/24/19 12:48 Last Admin: 07/24/19 11:52 Dose: 999 mls/hr Ibuprofen (Motrin) 400 mg PO ONETIME ONE Stop: 07/25/19 08:50 Last Admin: 07/25/19 09:37 Dose: 400 mg Influenza Virus Vaccine (Pharmacy To Dose - Influenza Vaccine) 1 each IM ONETIME ONE Stop: 07/24/19 17:38 Influenza Virus Vaccine (Fluzone High-Dose Syringe) 180 mcg IM .ONCE ONE Stop: 07/24/19 17:46 Iopamidol (Isovue Multipack-370 (76%)) 50 ml IVPUSH ONETIME STA Stop: 07/24/19 12:06 Last Admin: 07/24/19 12:25 Dose: 50 ml Non-Formulary Medication (Diclofenac Sodium/Misoprostol [Arthrotec 50 Mg-200 Mcg Tab]) 1 each PO BID [facility]
== END 2019-07-25 13:15 | disposition home or self-care (01) ==
LOC: MW.ED 10:33 → MW.MS 13:28
PROVIDERS: ADMIT Internal Medicine; ATTEND Internal Medicine
DX: R06.02 Shortness of breath (principal); R07.9 Chest pain, unspecified; I77.810 Thoracic aortic ectasia; I10 Essential (primary) hypertension; G89.29 Other chronic pain; M54.9 Dorsalgia, unspecified; M19.90 Unspecified osteoarthritis, unspecified site; E66.9 Obesity, unspecified; Z68.37 Body mass index [BMI] 37.0-37.9, adult; Z88.2 Allergy status to sulfonamides; Z79.899 Other long term (current) drug therapy; Z23 Encounter for immunization
CPT/HCPCS: 36415; 71046; 71275; 80048; 80053; 80061; 81001; 83036; 83735; 84484; 85025; 85379; 85610; 87804; 90662; 93005; 93306; 94640; 96360; 96361; 99285; A9270; G0008; J1650; J7030; Q9967; J7620-GY

== ENCOUNTER 2021-07-28 13:27 | Inpatient (IN) | payer OTHER, MEDICARE ==
[2021-07-28] MEDS ORDERED: Sodium Chloride 0.9% 2.5 ML Syringe FLUSH PRN (13:38)
[2021-07-28] MEDS ORDERED: Sodium Chloride 0.9% 10 ML Syringe FLUSH PRN (13:38)
[2021-07-28] MEDS ORDERED: Lactated Ringers 1,000 ML IV ONE (13:39)
[2021-07-28] MEDS ORDERED: Acetaminophen 325 MG Tab PO ONE (13:42)
[2021-07-28] MEDS ORDERED: LACTATED RINGERS IV ONE (13:59)
[2021-07-28] MEDS ORDERED: Cefepime 2 GM in Premix Bag 1 BAG IV ONE (14:11)
[2021-07-28 14:20] LABS: BLOOD UREA NITROGEN,BUN 15 mg/dL (7.0-18.0); CHLORIDE,CL 97 mmol/L (98-107); GLUCOSE RANDOM 128 mg/dL (74-106); POTASSIUM,K 3.9 mmol/L (3.5-5.1); SODIUM,NA 133 mmol/L (136-145)
[2021-07-28] MEDS ORDERED: VANCOmycin 1.5 GM/300 ML 1.5 GM in Premix Bag 1 BAG IV SCH (14:30)
[2021-07-28] MEDS ORDERED: oxyCODONE 5 MG Tab PO ONE (15:56)
[2021-07-28] MEDS ORDERED: Albuterol/Ipratropium 3.0-0.5 MG/3 ML Neb Soln NEB PRN (18:04)
[2021-07-28] MEDS ORDERED: Ondansetron 4 MG/2 ML SDV IVPUSH PRN (18:04)
[2021-07-28] MEDS: Pantoprazole 40 MG in Sodium Chloride 0.9% 10 ML IVPUSH SCH (18:35)
[2021-07-28] MEDS: Lactated Ringers 1,000 ML IV SCH (18:39)
[2021-07-28] MEDS: Acetaminophen 325 MG Tab PO PRN (18:41)
[2021-07-28] MEDS: Cefepime 1 GM in Premix Bag 1 BAG IV SCH (21:51)
[2021-07-29] MEDS: Lactated Ringers 1,000 ML IV SCH ×2 (02:39→12:14)
[2021-07-29] MEDS: Acetaminophen 325 MG Tab PO PRN ×3 (05:10→20:10)
[2021-07-29] MEDS: Cefepime 1 GM in Premix Bag 1 BAG IV SCH (06:23)
[2021-07-29 07:59] LABS: CARBON DIOXIDE,CO2 27.6 mmol/L (21.0-32.0); POTASSIUM,K 3.6 mmol/L (3.5-5.1)
[2021-07-29] MEDS ORDERED: Enoxaparin 40 MG/0.4 ML Syringe SUBCUT SCH (09:00)
[2021-07-29] MEDS: Pantoprazole 40 MG in Sodium Chloride 0.9% 10 ML IVPUSH SCH (09:00)
[2021-07-29] MEDS: Cefepime 2 GM in Premix Bag 1 BAG IV SCH (13:03)
[2021-07-29] MEDS ORDERED: Magnesium Sulfate/Water 2 GM in Premix Bag 1 BAG IV ONE (14:05)
[2021-07-29] MEDS: oxyCODONE 5 MG Tab PO PRN ×2 (16:59→23:27)
[2021-07-29] MEDS ORDERED: fentaNYL 12 MCG/HR Transdermal Patch TRDERM SCH (17:00)
[2021-07-29] MEDS ORDERED: busPIRone 5 MG Tab PO PRN (17:00)
[2021-07-29] MEDS ORDERED: Albuterol 8 GM Inhaler INH PRN (18:00)
[2021-07-29] MEDS: Gabapentin 300 MG Cap PO SCH (22:19)
[2021-07-29] MEDS: Budesonide/Formoterol 160-4.5 MCG/Puff 6 GM Inhaler INH SCH (23:26)
[2021-07-30 03:53] LABS: BLOOD UREA NITROGEN,BUN 11 mg/dL (7.0-18.0); CARBON DIOXIDE,CO2 30.3 mmol/L (21.0-32.0); CHLORIDE,CL 107 mmol/L (98-107); GLUCOSE RANDOM 100 mg/dL (74-106); POTASSIUM,K 3.9 mmol/L (3.5-5.1); SODIUM,NA 144 mmol/L (136-145)
[2021-07-30] MEDS: Cefepime 2 GM in Premix Bag 1 BAG IV SCH ×2 (04:46→14:02)
[2021-07-30] MEDS: oxyCODONE 5 MG Tab PO PRN ×3 (04:58→20:19)
[2021-07-30] MEDS: Gabapentin 300 MG Cap PO SCH ×3 (06:24→23:48)
[2021-07-30] MEDS ORDERED: DESVENLAFAXINE SUCCINATE 100 MG PO SCH (09:00)
[2021-07-30] MEDS: Pantoprazole 40 MG in Sodium Chloride 0.9% 10 ML IVPUSH SCH (10:15)
[2021-07-30] MEDS: Budesonide/Formoterol 160-4.5 MCG/Puff 6 GM Inhaler INH SCH (10:24)
[2021-07-31] MEDS ORDERED: Metoclopramide 10 MG Tab PO PRN (00:31)
[2021-07-31] MEDS: Budesonide/Formoterol 160-4.5 MCG/Puff 6 GM Inhaler INH SCH ×2 (02:25→08:46)
[2021-07-31] MEDS: oxyCODONE 5 MG Tab PO PRN ×3 (02:26→15:24)
[2021-07-31] MEDS: Cefepime 2 GM in Premix Bag 1 BAG IV SCH ×2 (02:28→13:32)
[2021-07-31] MEDS: Gabapentin 300 MG Cap PO SCH ×2 (05:40→13:32)
[2021-07-31] MEDS: Pantoprazole 40 MG in Sodium Chloride 0.9% 10 ML IVPUSH SCH (08:45)
[2021-07-31] MEDS ORDERED: DESVENLAFAXINE SUCCINATE 100 MG PO SCH (09:00)
[2021-07-31 09:05] LABS: BLOOD UREA NITROGEN,BUN 7 mg/dL (7.0-18.0); CARBON DIOXIDE,CO2 27.8 mmol/L (21.0-32.0); CHLORIDE,CL 107 mmol/L (98-107); GLUCOSE RANDOM 97 mg/dL (74-106); POTASSIUM,K 3.7 mmol/L (3.5-5.1); SODIUM,NA 144 mmol/L (136-145)
[2021-07-31 12:21] VITALS: BP 123/77; PULSE 83
== END 2021-07-31 16:00 | disposition home or self-care (01) | DRG 872 ==
LOC: MW.ED 13:27 → MW.MS 16:14
PROVIDERS: ADMIT Student in an Organized Health Care Education/Training Program; ATTEND Student in an Organized Health Care Education/Training Program
DX: A41.9 Sepsis, unspecified organism (principal); N12 Tubulo-interstitial nephritis, not specified as acute or chronic; C95.90 Leukemia, unspecified not having achieved remission; H54.7 Unspecified visual loss; I10 Essential (primary) hypertension; J45.909 Unspecified asthma, uncomplicated; K21.9 Gastro-esophageal reflux disease without esophagitis; M19.90 Unspecified osteoarthritis, unspecified site; M54.9 Dorsalgia, unspecified; G89.29 Other chronic pain; G43.909 Migraine, unspecified, not intractable, without status migrainosus; F41.9 Anxiety disorder, unspecified; F32.A Depression, unspecified; Z98.49 Cataract extraction status, unspecified eye; Z79.899 Other long term (current) drug therapy; Z87.440 Personal history of urinary (tract) infections; Z88.2 Allergy status to sulfonamides; Z88.1 Allergy status to other antibiotic agents; Z90.49 Acquired absence of other specified parts of digestive tract; Z90.710 Acquired absence of both cervix and uterus; Z20.822 Contact with and (suspected) exposure to COVID-19
CPT/HCPCS: 36415; 71045; 71045-26; 80048; 80053; 80202; 81001; 83605; 83735; 84100; 84484; 85025; 87040; 87086; 87088; 87186; 93005; 96365; 96367; 99285-25; A9270-GY; C9113; J0692; J1650; J3370; J3475; J7050; J7120; U0002

== ENCOUNTER 2021-09-01 10:41 | Observation (INO) | payer MEDICARE ==
[2021-09-01] MEDS ORDERED: Sodium Chloride 0.9% 1,000 ML IV ONE (10:55)
[2021-09-01] MEDS ORDERED: Ondansetron 4 MG/2 ML SDV IVPUSH ONE (10:55)
[2021-09-01] MEDS ORDERED: Morphine 4 MG/ML VIAL IVPUSH ONE (10:56)
[2021-09-01] MEDS ORDERED: Ondansetron 4 MG/2 ML SDV ONE (11:09)
[2021-09-01 13:00] LABS: POTASSIUM,K 3.7 mmol/L (3.5-5.1)
[2021-09-01] MEDS ORDERED: cefTRIAXone 1 GM in Sodium Chloride 0.9% 50 ML IV ONE (13:09)
[2021-09-01] MEDS ORDERED: Morphine 2 MG/ML SYRINGE IVPUSH ONE (13:30)
[2021-09-01] MEDS ORDERED: Sodium Chloride 0.9% 2.5 ML Syringe FLUSH PRN (14:44)
[2021-09-01] MEDS ORDERED: Sodium Chloride 0.9% 10 ML Syringe FLUSH PRN (14:44)
[2021-09-01] MEDS ORDERED: Ondansetron 4 MG/2 ML SDV IVPUSH PRN (14:46)
[2021-09-01] MEDS ORDERED: fentaNYL 12 MCG/HR Transdermal Patch TRDERM SCH (15:00)
[2021-09-01] MEDS ORDERED: Albuterol 8 GM Inhaler INH PRN (15:00)
[2021-09-01] MEDS: Sodium Chloride 0.9% 1,000 ML IV SCH ×2 (16:12→23:42)
[2021-09-01] MEDS: Pantoprazole 40 MG in Sodium Chloride 0.9% 10 ML IVPUSH SCH (16:16)
[2021-09-01] MEDS: Morphine 2 MG/ML SYRINGE IVPUSH PRN ×3 (16:21→23:36)
[2021-09-01] MEDS: Heparin Sodium 5,000 Units/ML Vial SUBCUT SCH ×2 (16:25→23:37)
[2021-09-01] MEDS ORDERED: Bisacodyl 10 MG Supp RECTAL ONE (16:37)
[2021-09-01] MEDS: Gabapentin 300 MG Cap PO SCH (21:15)
[2021-09-01] MEDS: Budesonide/Formoterol 160-4.5 MCG/Puff 6 GM Inhaler INH SCH (21:17)
[2021-09-02] MEDS: Morphine 2 MG/ML SYRINGE IVPUSH PRN ×2 (03:13→06:42)
[2021-09-02] MEDS: Sodium Chloride 0.9% 1,000 ML IV SCH ×3 (03:14→14:26)
[2021-09-02] MEDS: Heparin Sodium 5,000 Units/ML Vial SUBCUT SCH ×3 (06:42→23:40)
[2021-09-02] MEDS: Gabapentin 300 MG Cap PO SCH ×3 (06:42→21:40)
[2021-09-02 07:23] LABS: CARBON DIOXIDE,CO2 24.8 mmol/L (21.0-32.0); POTASSIUM,K 3.7 mmol/L (3.5-5.1)
[2021-09-02] MEDS ORDERED: Magnesium Sulfate/Water 2 GM in Premix Bag 1 BAG IV ONE (07:50)
[2021-09-02] MEDS: Budesonide/Formoterol 160-4.5 MCG/Puff 6 GM Inhaler INH SCH ×2 (08:48→21:39)
[2021-09-02] MEDS: Polyethylene Glycol 3350 Powder 17 GM Packet PO SCH (11:47)
[2021-09-02] MEDS: oxyCODONE 5 MG Tab PO PRN ×2 (11:47→18:18)
[2021-09-02] MEDS ORDERED: cefTRIAXone 1 GM in Sodium Chloride 0.9% 50 ML IV SCH (12:00)
[2021-09-02] MEDS: Pantoprazole 40 MG in Sodium Chloride 0.9% 10 ML IVPUSH SCH (14:26)
[2021-09-02] MEDS ORDERED: Melatonin 3 MG Tab PO PRN (23:15)
[2021-09-03] MEDS: oxyCODONE 5 MG Tab PO PRN ×2 (00:42→09:02)
[2021-09-03] MEDS ORDERED: Gabapentin 100 MG Cap PO SCH (06:00)
[2021-09-03] MEDS ORDERED: Gabapentin 100 MG Cap ONE (06:01)
[2021-09-03] MEDS: Heparin Sodium 5,000 Units/ML Vial SUBCUT SCH (06:05)
[2021-09-03 07:02] LABS: BLOOD UREA NITROGEN,BUN 11 mg/dL (7.0-18.0); CHLORIDE,CL 106 mmol/L (98-107); GLUCOSE RANDOM 96 mg/dL (74-106); POTASSIUM,K 3.7 mmol/L (3.5-5.1); SODIUM,NA 142 mmol/L (136-145)
[2021-09-03] MEDS: Polyethylene Glycol 3350 Powder 17 GM Packet PO SCH (08:58)
[2021-09-03] MEDS: Budesonide/Formoterol 160-4.5 MCG/Puff 6 GM Inhaler INH SCH (08:58)
[2021-09-03] MEDS ORDERED: Allopurinol 300 MG Tab PO SCH (09:00)
[2021-09-03] MEDS ORDERED: Gabapentin 300 MG Cap PO SCH (14:00)
[2021-09-03 16:11] VITALS: BP 103/72; PULSE 73
== END 2021-09-03 13:45 | disposition home or self-care (01) ==
LOC: MW.ED 10:41 → MW.MS 13:57
PROVIDERS: ADMIT Internal Medicine; ATTEND Internal Medicine
DX: N39.0 Urinary tract infection, site not specified (principal); E86.0 Dehydration; J45.20 Mild intermittent asthma, uncomplicated; I10 Essential (primary) hypertension; R10.9 Unspecified abdominal pain; R11.2 Nausea with vomiting, unspecified; F32.A Depression, unspecified; N17.9 Acute kidney failure, unspecified; J45.909 Unspecified asthma, uncomplicated; K21.9 Gastro-esophageal reflux disease without esophagitis; F41.9 Anxiety disorder, unspecified; F32.9 Major depressive disorder, single episode, unspecified; G43.909 Migraine, unspecified, not intractable, without status migrainosus; M19.90 Unspecified osteoarthritis, unspecified site; Z88.2 Allergy status to sulfonamides; Z88.0 Allergy status to penicillin; Z98.890 Other specified postprocedural states; Z90.711 Acquired absence of uterus with remaining cervical stump; Z90.49 Acquired absence of other specified parts of digestive tract; Z20.822 Contact with and (suspected) exposure to COVID-19; Z79.51 Long term (current) use of inhaled steroids; Z79.899 Other long term (current) drug therapy; Z85.6 Personal history of leukemia; Z86.16 Personal history of COVID-19
CPT/HCPCS: 36415; 74019; 74176; 80048; 80053; 81001; 83605; 83690; 83735; 85025; 87040; 87086; 96365; 96372; 96375; 96376; 99285; A9270; C9113; G0378; J0696; J1644; J2270; J2405; J3475; J7030; U0002; 36410; 99100

== ENCOUNTER 2022-05-04 15:36 | Emergency (ER) | payer OTHER ==
[2022-05-04] MEDS ORDERED: Azithromycin 250 MG Tab PO ONE (21:28)
[2022-05-04 21:39] VITALS: BP 132/68; PULSE 75
== END 2022-05-04 21:37 | disposition home or self-care (01) ==
LOC: MW.ED 15:36
DX: J40 Bronchitis, not specified as acute or chronic (principal); J32.9 Chronic sinusitis, unspecified; Z88.0 Allergy status to penicillin; Z79.899 Other long term (current) drug therapy; Z90.49 Acquired absence of other specified parts of digestive tract; Z90.710 Acquired absence of both cervix and uterus
CPT/HCPCS: 71046; 99283; A9270

== ENCOUNTER 2022-06-01 08:54 | Inpatient (IN) | payer MEDICARE, OTHER ==
[2022-06-01 09:54] LABS: CARBON DIOXIDE,CO2 26.9 mmol/L (21.0-32.0); POTASSIUM,K 3.9 mmol/L (3.5-5.1)
[2022-06-01] MEDS ORDERED: Sodium Chloride 0.9% 1,000 ML IV ONE ×2 (10:04→10:09)
[2022-06-01] MEDS ORDERED: cefTRIAXone 1 GM in Sodium Chloride 0.9% 100 ML IV ONE ×2 (10:09→10:30)
[2022-06-01] MEDS ORDERED: Sodium Chloride 0.9% 10 ML Syringe FLUSH PRN (10:09)
[2022-06-01] MEDS ORDERED: Sodium Chloride 0.9% 2.5 ML Syringe FLUSH PRN (10:09)
[2022-06-01 10:15] LABS: CORONAVIRUS COVID-19 NAA NEGATIVE (NEGATIVE); INFLUENZA A NAA NEGATIVE (NEGATIVE); INFLUENZA B NAA NEGATIVE (NEGATIVE)
[2022-06-01] MEDS ORDERED: VANCOmycin 1.75 GM/350 ML 1.75 GM in Premix Bag 1 BAG IV ONE (10:30)
[2022-06-01] MEDS ORDERED: Acetaminophen/oxyCODONE 325-5 MG Tab PO ONE (12:01)
[2022-06-01] MEDS: Albuterol/Ipratropium 3.0-0.5 MG/3 ML Neb Soln NEB ONE (13:55)
[2022-06-01] MEDS: Enoxaparin 40 MG/0.4 ML Syringe SUBCUT SCH (18:34)
[2022-06-01] MEDS: Acetaminophen 325 MG Tab PO PRN (18:35)
[2022-06-01] MEDS: Lactated Ringers 1,000 ML IV SCH (18:35)
[2022-06-01] MEDS: Albuterol/Ipratropium 3.0-0.5 MG/3 ML Neb Soln NEB PRN (18:35)
[2022-06-01] MEDS ORDERED: Codeine/guaiFENesin 10-100 MG/5 ML Syrup 5 ML Cup PO PRN (19:04)
[2022-06-01] MEDS ORDERED: Benzonatate 100 MG Cap PO PRN (19:05)
[2022-06-01] MEDS ORDERED: LIDOCAINE TOP PRN (19:08)
[2022-06-01] MEDS ORDERED: oxyCODONE 5 MG Tab PO PRN (19:08)
[2022-06-01] MEDS ORDERED: Lidocaine 5% 700 MG Patch TOP PRN (19:22)
[2022-06-01] MEDS: Melatonin 3 MG Tab PO SCH (20:59)
[2022-06-01] MEDS ORDERED: Azithromycin 500 MG in Sodium Chloride 0.9% 250 ML IV SCH (21:00)
[2022-06-01] MEDS: Gabapentin 300 MG Cap PO SCH (21:00)
[2022-06-01] MEDS ORDERED: Budesonide/Formoterol 160-4.5 MCG/Puff 6 GM Inhaler INH SCH (21:00)
[2022-06-01] MEDS: Pantoprazole 40 MG Tab.CR PO SCH (21:37)
[2022-06-01] MEDS ORDERED: methylPREDNISolone Sodium Succinate 125 MG/2 ML SDV IVPUSH ONE (21:40)
[2022-06-01] MEDS: Budesonide 0.5 MG/2 ML Neb Susp NEB SCH (22:30)
[2022-06-01] MEDS: Metoclopramide 10 MG Tab PO PRN (22:52)
[2022-06-02] MEDS: Lactated Ringers 1,000 ML IV SCH ×2 (01:38→07:19)
[2022-06-02] MEDS: Gabapentin 300 MG Cap PO SCH ×3 (05:26→21:02)
[2022-06-02 06:49] LABS: POTASSIUM,K 4.4 mmol/L (3.5-5.1)
[2022-06-02] MEDS ORDERED: oxyCODONE 5 MG Tab PO PRN (07:30)
[2022-06-02] MEDS: Albuterol/Ipratropium 3.0-0.5 MG/3 ML Neb Soln NEB PRN ×2 (08:15→17:33)
[2022-06-02] MEDS: Budesonide 0.5 MG/2 ML Neb Susp NEB SCH ×2 (08:16→21:16)
[2022-06-02] MEDS: DESVENLAFAXINE PO SCH (09:00)
[2022-06-02] MEDS: methylPREDNISolone Sodium Succinate 40 MG/1 ML SDV IVPUSH SCH ×2 (10:30→21:03)
[2022-06-02] MEDS: Acetaminophen 325 MG Tab PO PRN ×2 (12:12→16:39)
[2022-06-02] MEDS ORDERED: cefTRIAXone 1 GM in Sodium Chloride 0.9% 50 ML IV SCH (13:00)
[2022-06-02] MEDS: oxyCODONE 5 MG Tab PO PRN ×2 (13:19→19:26)
[2022-06-02] MEDS: Enoxaparin 40 MG/0.4 ML Syringe SUBCUT SCH (16:38)
[2022-06-02] MEDS: Metoclopramide 10 MG Tab PO PRN (16:39)
[2022-06-02] MEDS ORDERED: Azithromycin 250 MG Tab PO SCH (21:00)
[2022-06-02] MEDS: Pantoprazole 40 MG Tab.CR PO SCH (21:02)
[2022-06-02] MEDS: Melatonin 3 MG Tab PO SCH (21:56)
[2022-06-03] MEDS: oxyCODONE 5 MG Tab PO PRN ×2 (03:41→10:44)
[2022-06-03] MEDS: Acetaminophen 325 MG Tab PO PRN ×2 (05:04→09:04)
[2022-06-03] MEDS: Gabapentin 300 MG Cap PO SCH (05:05)
[2022-06-03 07:10] LABS: CARBON DIOXIDE,CO2 28.5 mmol/L (21.0-32.0); POTASSIUM,K 4.2 mmol/L (3.5-5.1)
[2022-06-03] MEDS: Budesonide 0.5 MG/2 ML Neb Susp NEB SCH (08:47)
[2022-06-03] MEDS: methylPREDNISolone Sodium Succinate 40 MG/1 ML SDV IVPUSH SCH (08:47)
[2022-06-03] MEDS: DESVENLAFAXINE PO SCH (08:56)
[2022-06-03] MEDS: Metoclopramide 10 MG Tab PO PRN (09:04)
[2022-06-03] MEDS ORDERED: Magnesium Sulfate/Water 2 GM in Premix Bag 1 BAG IV ONE (11:00)
[2022-06-03 13:21] VITALS: BP 156/80; PULSE 81
[2022-06-03] MEDS ORDERED: fentaNYL 12 MCG/HR Transdermal Patch TRDERM SCH (17:00)
== END 2022-06-03 14:15 | disposition home or self-care (01) | DRG 689 ==
LOC: MW.ED 08:54 → MW.MS 14:33
PROVIDERS: ADMIT Student in an Organized Health Care Education/Training Program; ATTEND Student in an Organized Health Care Education/Training Program
DX: N30.00 Acute cystitis without hematuria (principal); J96.01 Acute respiratory failure with hypoxia; J40 Bronchitis, not specified as acute or chronic; J45.20 Mild intermittent asthma, uncomplicated; F32.A Depression, unspecified; Z85.6 Personal history of leukemia; R53.1 Weakness; K21.9 Gastro-esophageal reflux disease without esophagitis; M19.90 Unspecified osteoarthritis, unspecified site; Z20.822 Contact with and (suspected) exposure to COVID-19; G89.29 Other chronic pain; Z79.899 Other long term (current) drug therapy
CPT/HCPCS: 0240U; 36415; 71045; 71045-26; 80048; 80053; 81001; 83605; 83735; 84100; 84484; 85025; 85379; 87040; 87086; 87651-QW; 94640; 94667; 96365; 96366; 96367; 97161-GP; 99285-25; A9270-GY; J0456; J0696; J1650; J2920; J2930; J3370; J3475; J3490; J7030; J7050; J7120; J7620-GY

== ENCOUNTER 2022-06-18 14:39 | Inpatient (IN) | payer MEDICARE, OTHER ==
[2022-06-18] MEDS ORDERED: Sodium Chloride 0.9% 1,000 ML IV ONE (14:45)
[2022-06-18] MEDS ORDERED: Acetaminophen 500 MG Tab PO ONE (14:47)
[2022-06-18] MEDS ORDERED: Cefepime 2 GM Vial IVPUSH ONE (14:47)
[2022-06-18] MEDS ORDERED: Ketorolac 30 MG/ML SDV IVPUSH ONE (14:47)
[2022-06-18] MEDS ORDERED: Ondansetron 4 MG/2 ML SDV IVPUSH ONE (14:59)
[2022-06-18] MEDS ORDERED: Cefepime 2 GM in Premix Bag 1 BAG IV SCH (15:15)
[2022-06-18 15:30] LABS: CARBON DIOXIDE,CO2 24.2 mmol/L (21.0-32.0); POTASSIUM,K 4.7 mmol/L (3.5-5.1)
[2022-06-18 15:33] LABS: CORONAVIRUS COVID-19 NAA NEGATIVE (NEGATIVE); INFLUENZA A NAA NEGATIVE (NEGATIVE); INFLUENZA B NAA NEGATIVE (NEGATIVE)
[2022-06-18] MEDS ORDERED: Iopamidol 755 MG/ML 500 ML Multipack Bottle IVPUSH ONE (17:24)
[2022-06-18] MEDS ORDERED: Magnesium Sulfate/Water 2 GM in Premix Bag 1 BAG IV ONE (18:55)
[2022-06-18] MEDS ORDERED: VANCOmycin 2 GM/400 ML 2 GM in Premix Bag 1 BAG IV ONE (19:15)
[2022-06-18] MEDS ORDERED: Albuterol/Ipratropium 3.0-0.5 MG/3 ML Neb Soln NEB PRN (20:17)
[2022-06-18] MEDS ORDERED: Ondansetron 4 MG/2 ML SDV IVPUSH PRN (20:17)
[2022-06-18] MEDS ORDERED: Acetaminophen 325 MG Tab PO PRN (20:17)
[2022-06-18] MEDS ORDERED: Piperacillin/Tazobactam 4.5 GM in Sodium Chloride 0.9% 100 ML IV SCH (20:30)
[2022-06-18] MEDS ORDERED: Pantoprazole 40 MG in Sodium Chloride 0.9% 10 ML IVPUSH SCH (20:30)
[2022-06-18] MEDS ORDERED: Lidocaine 5% 700 MG Patch TOP PRN (20:44)
[2022-06-18] MEDS: Lactated Ringers 1,000 ML IV SCH (21:42)
[2022-06-18] MEDS: Enoxaparin 100 MG/1 ML Syringe SUBCUT SCH (22:52)
[2022-06-18] MEDS: Gabapentin 300 MG Cap PO SCH (22:54)
[2022-06-18] MEDS: Calcium Carbonate/Vitamin D3 1500 MG-400 Units Tab PO SCH (22:54)
[2022-06-18] MEDS: BUDESONIDE INH SCH (23:52)
[2022-06-18] MEDS: FORMOTEROL INH SCH (23:52)
[2022-06-19] MEDS: Metoclopramide 10 MG Tab PO SCH ×5 (00:47→23:57)
[2022-06-19] MEDS ORDERED: Cefepime 2 GM Vial IVPUSH SCH ×2 (02:00→08:30)
[2022-06-19] MEDS: Gabapentin 300 MG Cap PO SCH ×3 (05:27→22:26)
[2022-06-19] MEDS: HYDROmorphone 2 MG Tab PO PRN ×2 (05:27→20:25)
[2022-06-19] MEDS: Lactated Ringers 1,000 ML IV SCH ×2 (05:29→14:40)
[2022-06-19 07:13] LABS: CARBON DIOXIDE,CO2 26.9 mmol/L (21.0-32.0); POTASSIUM,K 4.2 mmol/L (3.5-5.1)
[2022-06-19] MEDS: Aspirin 81 MG Tab.Chew PO SCH (09:12)
[2022-06-19] MEDS: Allopurinol 300 MG Tab PO SCH (09:12)
[2022-06-19] MEDS: Calcium Carbonate/Vitamin D3 1500 MG-400 Units Tab PO SCH ×2 (09:13→20:34)
[2022-06-19] MEDS: Enoxaparin 100 MG/1 ML Syringe SUBCUT SCH ×2 (09:13→20:35)
[2022-06-19] MEDS: Fluticasone NASAL Spray 16 GM Bottle NASBOTH SCH (09:13)
[2022-06-19] MEDS ORDERED: Sucralfate 1 GM Tab PO PRN (09:25)
[2022-06-19] MEDS: oxyCODONE 5 MG Tab PO PRN ×3 (10:08→23:37)
[2022-06-19] MEDS: Azithromycin 500 MG in Sodium Chloride 0.9% 250 ML IV SCH (10:11)
[2022-06-19] MEDS: BUDESONIDE INH SCH ×2 (10:20→22:28)
[2022-06-19] MEDS: FORMOTEROL INH SCH ×2 (10:20→22:28)
[2022-06-19] MEDS: DESVENLAFAXINE SUCCINATE 25 MG PO SCH (10:20)
[2022-06-19] MEDS: Cefepime 2 GM in Sodium Chloride 0.9% 50 ML IV SCH ×2 (11:08→22:21)
[2022-06-19] MEDS: Albuterol/Ipratropium 3.0-0.5 MG/3 ML Neb Soln NEB SCH ×3 (12:02→23:38)
[2022-06-19] MEDS: SUMAtriptan 50 MG Tab PO PRN (17:58)
[2022-06-19] MEDS: VANCOmycin 1.5 GM/300 ML 300 ML IV SCH ×2 (20:27→23:38)
[2022-06-19] MEDS: Pantoprazole 40 MG Tab.CR PO SCH (20:34)
[2022-06-20] MEDS: VANCOmycin 1.5 GM/300 ML 300 ML IV SCH ×2 (03:57→08:03)
[2022-06-20] MEDS: Lactated Ringers 1,000 ML IV SCH (03:57)
[2022-06-20] MEDS: HYDROmorphone 2 MG Tab PO PRN ×2 (04:12→20:38)
[2022-06-20] MEDS: Albuterol/Ipratropium 3.0-0.5 MG/3 ML Neb Soln NEB SCH ×2 (06:17→12:55)
[2022-06-20] MEDS: oxyCODONE 5 MG Tab PO PRN ×3 (06:25→22:27)
[2022-06-20] MEDS: Metoclopramide 10 MG Tab PO SCH ×4 (06:26→23:28)
[2022-06-20] MEDS: Gabapentin 300 MG Cap PO SCH ×3 (06:26→22:28)
[2022-06-20 07:59] LABS: CARBON DIOXIDE,CO2 24.8 mmol/L (21.0-32.0); POTASSIUM,K 3.9 mmol/L (3.5-5.1)
[2022-06-20] MEDS: Aspirin 81 MG Tab.Chew PO SCH (09:59)
[2022-06-20] MEDS: Calcium Carbonate/Vitamin D3 1500 MG-400 Units Tab PO SCH ×2 (09:59→20:55)
[2022-06-20] MEDS ORDERED: fentaNYL 12 MCG/HR Transdermal Patch TRDERM SCH (10:00)
[2022-06-20] MEDS: Allopurinol 300 MG Tab PO SCH (10:00)
[2022-06-20] MEDS: Enoxaparin 100 MG/1 ML Syringe SUBCUT SCH (10:04)
[2022-06-20] MEDS: Fluticasone NASAL Spray 16 GM Bottle NASBOTH SCH (10:06)
[2022-06-20] MEDS: Azithromycin 500 MG in Sodium Chloride 0.9% 250 ML IV SCH (10:07)
[2022-06-20] MEDS: DESVENLAFAXINE SUCCINATE 25 MG PO SCH (10:10)
[2022-06-20] MEDS: BUDESONIDE INH SCH ×2 (10:11→21:07)
[2022-06-20] MEDS: FORMOTEROL INH SCH ×2 (10:11→21:07)
[2022-06-20] MEDS: Cefepime 2 GM in Sodium Chloride 0.9% 50 ML IV SCH ×2 (10:21→20:55)
[2022-06-20] MEDS ORDERED: Albuterol/Ipratropium 3.0-0.5 MG/3 ML Neb Soln NEB PRN (13:20)
[2022-06-20] MEDS: Apixaban 5 MG Tab PO SCH (20:54)
[2022-06-20] MEDS: Pantoprazole 40 MG Tab.CR PO SCH (20:55)
[2022-06-21 08:34] LABS: POTASSIUM,K 3.7 mmol/L (3.5-5.1)
[2022-06-21] MEDS: Aspirin 81 MG Tab.Chew PO SCH (09:01)
[2022-06-21] MEDS: Metoclopramide 10 MG Tab PO SCH ×2 (09:01→11:35)
[2022-06-21] MEDS: Gabapentin 300 MG Cap PO SCH (09:01)
[2022-06-21] MEDS: Apixaban 5 MG Tab PO SCH (09:02)
[2022-06-21] MEDS: Calcium Carbonate/Vitamin D3 1500 MG-400 Units Tab PO SCH (09:02)
[2022-06-21] MEDS: Allopurinol 300 MG Tab PO SCH (09:02)
[2022-06-21] MEDS: Cefepime 2 GM in Sodium Chloride 0.9% 50 ML IV SCH (09:02)
[2022-06-21] MEDS: SUMAtriptan 50 MG Tab PO PRN (09:02)
[2022-06-21] MEDS: Fluticasone NASAL Spray 16 GM Bottle NASBOTH SCH (09:03)
[2022-06-21] MEDS: BUDESONIDE INH SCH (09:27)
[2022-06-21] MEDS: FORMOTEROL INH SCH (09:27)
[2022-06-21] MEDS: DESVENLAFAXINE SUCCINATE 25 MG PO SCH (10:14)
[2022-06-21] MEDS: Azithromycin 500 MG in Sodium Chloride 0.9% 250 ML IV SCH (10:15)
[2022-06-21] MEDS: oxyCODONE 5 MG Tab PO PRN (11:34)
[2022-06-21 13:55] VITALS: BP 129/62; PULSE 64
== END 2022-06-21 13:35 | disposition home or self-care (01) | DRG 871 ==
LOC: MW.ED 14:39 → MW.MS 18:44
PROVIDERS: ADMIT Student in an Organized Health Care Education/Training Program; ATTEND Student in an Organized Health Care Education/Training Program
DX: A41.9 Sepsis, unspecified organism (principal); J18.9 Pneumonia, unspecified organism; J45.909 Unspecified asthma, uncomplicated; J69.0 Pneumonitis due to inhalation of food and vomit; J96.01 Acute respiratory failure with hypoxia; N39.0 Urinary tract infection, site not specified; K21.9 Gastro-esophageal reflux disease without esophagitis; C95.91 Leukemia, unspecified, in remission; R74.01 Elevation of levels of liver transaminase levels; D73.5 Infarction of spleen; I77.810 Thoracic aortic ectasia; J45.20 Mild intermittent asthma, uncomplicated; G89.29 Other chronic pain; F32.A Depression, unspecified; R13.10 Dysphagia, unspecified; H54.7 Unspecified visual loss; I71.9 Aortic aneurysm of unspecified site, without rupture; M19.90 Unspecified osteoarthritis, unspecified site; M54.9 Dorsalgia, unspecified; Z96.651 Presence of right artificial knee joint; G43.909 Migraine, unspecified, not intractable, without status migrainosus; F41.9 Anxiety disorder, unspecified; Z98.49 Cataract extraction status, unspecified eye; Z79.82 Long term (current) use of aspirin; Z85.6 Personal history of leukemia; Z86.16 Personal history of COVID-19; Z79.899 Other long term (current) drug therapy; Z79.01 Long term (current) use of anticoagulants; Z88.1 Allergy status to other antibiotic agents; Z87.01 Personal history of pneumonia (recurrent); Z87.440 Personal history of urinary (tract) infections; Z90.49 Acquired absence of other specified parts of digestive tract; Z90.710 Acquired absence of both cervix and uterus; Z20.822 Contact with and (suspected) exposure to COVID-19
CPT/HCPCS: 0240U; 36415; 71275; 74177; 80053; 80202; 81001; 82803; 83605; 83690; 83735; 83880; 84100; 84443; 84484; 85014; 85018; 85025; 85379; 85610; 85730; 86140; 86308; 87040; 92526; 93005; 93306; 94640; 96365; 96375; 99285; A9270-GY; C9113; J0456; J0692; J1650; J1885; J2405; J3370; J3475; J3490; J7030; J7050; J7120; J7620-GY; Q9967

== ENCOUNTER 2022-07-06 13:35 | Observation (INO) | payer MEDICARE ==
[2022-07-06] MEDS ORDERED: Morphine 4 MG/ML Syringe IVPUSH ONE ×2 (15:24→18:39)
[2022-07-06] MEDS ORDERED: Ondansetron 4 MG/2 ML SDV IVPUSH ONE (15:24)
[2022-07-06] MEDS: Sodium Chloride 0.9% 10 ML Syringe FLUSH PRN ×2 (15:31→19:55)
[2022-07-06] MEDS: Sodium Chloride 0.9% 2.5 ML Syringe FLUSH PRN ×2 (15:31→19:55)
[2022-07-06 16:33] LABS: CORONAVIRUS COVID-19 NAA NEGATIVE (NEGATIVE); INFLUENZA A NAA NEGATIVE (NEGATIVE); INFLUENZA B NAA NEGATIVE (NEGATIVE)
[2022-07-06 16:52] LABS: CARBON DIOXIDE,CO2 24.1 mmol/L (21.0-32.0); POTASSIUM,K 3.9 mmol/L (3.5-5.1)
[2022-07-06] MEDS ORDERED: Iopamidol 755 MG/ML 500 ML Multipack Bottle IVPUSH STA (18:09)
[2022-07-06] MEDS ORDERED: Promethazine 25 MG/ML SDV IM ONE (19:45)
[2022-07-06] MEDS ORDERED: Ondansetron 4 MG/2 ML SDV IVPUSH PRN (21:11)
[2022-07-06] MEDS ORDERED: Promethazine 25 MG/ML SDV IM PRN (21:12)
[2022-07-06] MEDS ORDERED: Sodium Chloride 0.9% 1,000 ML IV SCH (21:15)
[2022-07-06] MEDS: Morphine 2 MG/ML SYRINGE IVPUSH PRN (21:40)
[2022-07-06] MEDS: Pantoprazole 40 MG in Sodium Chloride 0.9% 10 ML IVPUSH SCH (22:01)
[2022-07-06] MEDS ORDERED: Dexamethasone 4 MG/ML 5 ML MDV ONE (22:10)
[2022-07-06] MEDS ORDERED: Lidocaine 2% 5 ML SDV ONE (22:10)
[2022-07-06] MEDS ORDERED: Sugammadex Sodium 200 MG/2 ML VIAL ONE (22:10)
[2022-07-06] MEDS ORDERED: fentaNYL 100 MCG/2 ML SDV ONE (22:10)
[2022-07-06] MEDS ORDERED: Ondansetron 4 MG/2 ML SDV ONE (22:10)
[2022-07-06] MEDS ORDERED: Propofol 200 MG/20 ML SDV ONE (22:10)
[2022-07-06] MEDS ORDERED: Rocuronium Bromide 50 MG/5 ML Syringe ONE (22:10)
[2022-07-06] MEDS ORDERED: Water For Injection, Sterile 20 ML ONE (22:59)
[2022-07-06] MEDS ORDERED: Phenylephrine 1% 10 MG/ML SDV ONE (22:59)
[2022-07-07] MEDS ORDERED: Phenol 1.4% Oral Spray 177 ML Bottle MUCMEM PRN (00:31)
[2022-07-07] MEDS ORDERED: HYDROmorphone 1 MG/ML Syringe IVPUSH PRN (00:32)
[2022-07-07] MEDS ORDERED: Acetaminophen/HYDROcodone 325-5 MG Tab PO PRN (00:32)
[2022-07-07] MEDS: Morphine 2 MG/ML SYRINGE IVPUSH PRN (05:36)
[2022-07-07] MEDS: Pantoprazole 40 MG in Sodium Chloride 0.9% 10 ML IVPUSH SCH (09:28)
[2022-07-07 12:45] VITALS: BP 139/84; PULSE 81
== END 2022-07-07 14:40 | disposition home or self-care (01) ==
LOC: MW.ED 13:35 → MW.MS 19:46
PROVIDERS: ADMIT Internal Medicine; ATTEND Internal Medicine
DX: K22.2 Esophageal obstruction (principal); K21.9 Gastro-esophageal reflux disease without esophagitis; J45.909 Unspecified asthma, uncomplicated; F41.9 Anxiety disorder, unspecified; F32.A Depression, unspecified; M19.90 Unspecified osteoarthritis, unspecified site; C95.90 Leukemia, unspecified not having achieved remission; G43.909 Migraine, unspecified, not intractable, without status migrainosus; Z79.899 Other long term (current) drug therapy; Z88.0 Allergy status to penicillin; Z20.822 Contact with and (suspected) exposure to COVID-19; Z79.82 Long term (current) use of aspirin; Z90.49 Acquired absence of other specified parts of digestive tract; Z98.890 Other specified postprocedural states; Z90.710 Acquired absence of both cervix and uterus
CPT/HCPCS: 0240U; 36415; 43247; 74177; 80053; 81003; 83690; 85025; 93005; 96372; 96374; 96375; 96376; 99285; A9270; C9113; G0378; J1100; J1170; J2270; J2370; J2405; J2550; J2704; J3010; J3490; J7030; Q9967; 00731; 99100; 99221

== ENCOUNTER 2024-03-26 12:30 | Inpatient (IN) | payer MEDICARE ==
[2024-03-26 13:10] LABS: HEMOGLOBIN 13.5 g/dL (12.0-16.0); MEAN CORPUSCULAR HEMOGLOBIN 30.7 pg (28.0-32.0); MEAN CORPUSCULAR HGB CONC 34.6 g/dL (32.0-36.0); MEAN CORPUSCULAR VOLUME 88.6 fL (83.0-99.0); MEAN PLATELET VOLUME 9.5 fL (9.4-12.3); PLATELET COUNT,PLT 201 K/uL (150-400); WHITE BLOOD CELL COUNT,WBC 10.23 K/uL (3.9-11.3)
[2024-03-26] MEDS: Sodium Chloride 0.9% 1,000 ML IV ONE ×3 (13:35→15:20)
[2024-03-26 13:39] LABS: BAND ABSOLUTE MAN 3.38; BAND PERCENT MAN 33 %; LYMPHOCYTES ABSOLUTE MAN 1.02 K/uL (1.00-4.80); LYMPHOCYTES PERCENT MAN 10 % (24-44); MONOCYTES ABSOLUTE MAN 0.51 K/uL (0.00-0.80); MONOCYTES PERCENT MAN 5 % (0-8); SEG NEUTROPHILS ABSOLUTE MAN 4.81 K/uL (1.80-7.70); SEG NEUTROPHILS PERCENT MAN 47 % (41-71)
[2024-03-26] MEDS: cefTRIAXone 1 GM in Sodium Chloride 0.9% 50 ML IV ONE (13:39)
[2024-03-26] MEDS: Azithromycin 500 MG in Sodium Chloride 0.9% 250 ML IV ONE (13:39)
[2024-03-26 13:40] LABS: BASOPHILS PERCENT MAN 1 % (0-1); EOSINOPHILS PERCENT MAN 1 % (0-6); METAMYELOCYTE ABSOLUTE MAN 0.31; METAMYELOCYTE PERCENT MAN 3 %
[2024-03-26 13:51] LABS: ALBUMIN 2.6 g/dL (3.4-5.0); BILIRUBIN TOTAL 1.2 mg/dL (0.2-1.0); CALCIUM 8.6 mg/dL (8.5-10.1); CARBON DIOXIDE,CO2 22.4 mmol/L (21.0-32.0); EST CRCL DRUG DOSING (CG) 19.81 mL/min; PROTEIN TOTAL,TP 5.2 g/dL (6.4-8.2); TSH ULTRASENSITIVE 1.37 uIU/mL (0.36-3.74)
[2024-03-26] MEDS: Norepinephrine Bit/D5W Premix 250 ML IV SCH (13:58)
[2024-03-26 15:00] LABS: LACTIC ACID 5.9 mmol/L (0.4-2.0)
[2024-03-26] MEDS ORDERED: Cefepime 2 GM in Sodium Chloride 0.9% 50 ML IV SCH (16:15)
[2024-03-26] MEDS ORDERED: Sodium Chloride 0.9% 10 ML Syringe FLUSH PRN (16:37)
[2024-03-26] MEDS ORDERED: Sodium Chloride 0.9% 2.5 ML Syringe FLUSH PRN (16:37)
[2024-03-26] MEDS ORDERED: Ondansetron 4 MG/2 ML SDV IVPUSH PRN (16:37)
[2024-03-26 16:39] LABS: CORONAVIRUS COVID-19 NAA POSITIVE (NEGATIVE); INFLUENZA A NAA NEGATIVE (NEGATIVE); INFLUENZA B NAA NEGATIVE (NEGATIVE); RESPIRATORY SYNCYTIAL VIR NAA NEGATIVE (NEGATIVE)
[2024-03-26] MEDS: Pantoprazole 40 MG in Sodium Chloride 0.9% 10 ML IVPUSH SCH (17:28)
[2024-03-26] MEDS: Cefepime 1 GM in Sodium Chloride 0.9% 50 ML IV SCH (17:28)
[2024-03-26 20:09] LABS: CARBON DIOXIDE,CO2 20.8 mmol/L (21.0-32.0); EST CRCL DRUG DOSING (CG) 19.81 mL/min; POTASSIUM,K 4.8 mmol/L (3.5-5.1)
[2024-03-26] MEDS: Sodium Chloride 0.9% 1,000 ML IV SCH (20:46)
[2024-03-26] MEDS: Formoterol/Mometasone 200-5 MCG 8.8 GM Inhaler INH SCH (21:00)
[2024-03-26] MEDS: Apixaban 2.5 MG Tab PO SCH (21:00)
[2024-03-26] MEDS ORDERED: Non-Formulary Medication 1 Each (Budesonide/Formoterol [Symbicort 160-4.5 Mcg Inhaler (6 G IH SCH (21:00)
[2024-03-26] MEDS: fentaNYL 100 MCG/2 ML SDV ONE (21:42)
[2024-03-26] MEDS: fentaNYL 100 MCG/2 ML SDV IVPUSH ONE (21:46)
[2024-03-26] MEDS: Lidocaine 1% 20 ML MDV ONE (21:46)
[2024-03-26] MEDS: oxyCODONE 5 MG Tab PO PRN (23:31)
[2024-03-26] MEDS: Gabapentin 100 MG Cap PO PRN (23:32)
[2024-03-27] MEDS: Acetaminophen 325 MG Tab PO PRN (01:35)
[2024-03-27] MEDS: ClonazePAM 0.5 MG Tab PO ONE (01:36)
[2024-03-27] MEDS: OLANZapine 10 MG Vial IM ONE (01:45)
[2024-03-27] MEDS: Lactated Ringers 1,000 ML IV ONE (04:00)
[2024-03-27 05:50] LABS: HEMATOCRIT 32.2 % (37.0-47.0); MEAN CORPUSCULAR HEMOGLOBIN 30.4 pg (28.0-32.0); MEAN CORPUSCULAR HGB CONC 34.2 g/dL (32.0-36.0); MEAN PLATELET VOLUME 9.6 fL (9.4-12.3); PLATELET COUNT,PLT 145 K/uL (150-400); RED BLOOD CELL COUNT 3.62 M/uL (4.10-5.30); WHITE BLOOD CELL COUNT,WBC 20.92 K/uL (3.9-11.3)
[2024-03-27 06:13] LABS: A/G RATIO 0.9 (0.9-1.6); BILIRUBIN TOTAL 0.9 mg/dL (0.2-1.0); CALCIUM 7.1 mg/dL (8.5-10.1); CARBON DIOXIDE,CO2 22.9 mmol/L (21.0-32.0); CREATININE 1.7 mg/dL (0.6-1.0); EST CRCL DRUG DOSING (CG) 23.31 mL/min; MAGNESIUM 1.3 mg/dL (1.8-2.4); PHOSPHORUS 2.8 mg/dL (2.6-4.7); POTASSIUM,K 5.2 mmol/L (3.5-5.1); PROTEIN TOTAL,TP 4.2 g/dL (6.4-8.2)
[2024-03-27 07:05] LABS: BAND ABSOLUTE MAN 5.23; BAND PERCENT MAN 25 %; LYMPHOCYTES ABSOLUTE MAN 2.72 K/uL (1.00-4.80); LYMPHOCYTES PERCENT MAN 13 % (24-44); MONOCYTES ABSOLUTE MAN 1.46 K/uL (0.00-0.80); MONOCYTES PERCENT MAN 7 % (0-8); SEG NEUTROPHILS ABSOLUTE MAN 11.51 K/uL (1.80-7.70); SEG NEUTROPHILS PERCENT MAN 55 % (41-71)
[2024-03-27] MEDS: Cefepime 2 GM in Sodium Chloride 0.9% 50 ML IV SCH (08:18)
[2024-03-27] MEDS: REMDESIVIR 200 MG in Sodium Chloride 0.9% 250 ML IV ONE (09:05)
[2024-03-27] MEDS: Magnesium Sulfate/Water Premix 4 GM in Premix Bag 1 BAG IV ONE (09:44)
[2024-03-27] MEDS: Sodium Chloride 0.9% 500 ML IV SCH (11:10)
[2024-03-27] MEDS: Nystatin Topical Powder 15 GM Bottle TOP PRN (11:14)
[2024-03-27] MEDS: OLANZapine 5 MG in Water For Injection, Sterile 2.1 ML IM ONE (11:19)
[2024-03-27] MEDS: Azithromycin 500 MG in Sodium Chloride 0.9% 250 ML IV SCH (12:34)
[2024-03-27] MEDS: Albuterol/Ipratropium 3.0-0.5 MG/3 ML Neb Soln NEB PRN (17:00)
[2024-03-27] MEDS: Sodium Chloride 0.9% 250 ML ONE (20:57)
[2024-03-27] MEDS: Gabapentin 300 MG Cap PO SCH (21:07)
[2024-03-28 05:02] LABS: BORDETELLA PARAPERT IS1001 Not Detected (Not Detected)
[2024-03-28 06:01] LABS: HEMATOCRIT 28.1 % (37.0-47.0); HEMOGLOBIN 9.6 g/dL (12.0-16.0); MEAN CORPUSCULAR HEMOGLOBIN 30.5 pg (28.0-32.0); MEAN CORPUSCULAR HGB CONC 34.2 g/dL (32.0-36.0); MEAN CORPUSCULAR VOLUME 89.2 fL (83.0-99.0); MEAN PLATELET VOLUME 9.5 fL (9.4-12.3); PLATELET COUNT,PLT 127 K/uL (150-400); RED BLOOD CELL COUNT 3.15 M/uL (4.10-5.30); WHITE BLOOD CELL COUNT,WBC 13.75 K/uL (3.9-11.3)
[2024-03-28 06:30] LABS: A/G RATIO 0.7 (0.9-1.6); ALBUMIN 1.9 g/dL (3.4-5.0); BILIRUBIN TOTAL 0.7 mg/dL (0.2-1.0); CALCIUM 7.1 mg/dL (8.5-10.1); CREATININE 1.2 mg/dL (0.6-1.0); EST CRCL DRUG DOSING (CG) 33.02 mL/min; MAGNESIUM 2.4 mg/dL (1.8-2.4); POTASSIUM,K 4.4 mmol/L (3.5-5.1); PROTEIN TOTAL,TP 4.5 g/dL (6.4-8.2)
[2024-03-28 07:04] LABS: CARBON DIOXIDE,CO2 24.5 mmol/L (21.0-32.0)
[2024-03-28 07:05] LABS: BAND PERCENT MAN 8 %; LYMPHOCYTES ABSOLUTE MAN 0.96 K/uL (1.00-4.80); LYMPHOCYTES PERCENT MAN 7 % (24-44); MONOCYTES ABSOLUTE MAN 0.41 K/uL (0.00-0.80); MONOCYTES PERCENT MAN 3 % (0-8); SEG NEUTROPHILS ABSOLUTE MAN 11.28 K/uL (1.80-7.70); SEG NEUTROPHILS PERCENT MAN 82 % (41-71)
[2024-03-28] MEDS: REMDESIVIR 100 MG in Sodium Chloride 0.9% 100 ML IV SCH (07:54)
[2024-03-28] MEDS: Sodium Chloride 0.9% 500 ML IV SCH (08:58)
[2024-03-28] MEDS: fentaNYL 25 MCG/HR Transdermal Patch TRDERM SCH (17:29)
[2024-03-28] MEDS: SUMAtriptan 50 MG Tab PO ONE (23:23)
[2024-03-29 06:07] LABS: MEAN CORPUSCULAR HGB CONC 33.3 g/dL (32.0-36.0); MEAN PLATELET VOLUME 10.5 fL (9.4-12.3); PLATELET COUNT,PLT 115 K/uL (150-400)
[2024-03-29 06:31] LABS: A/G RATIO 0.6 (0.9-1.6); ALBUMIN 1.8 g/dL (3.4-5.0); BILIRUBIN TOTAL 0.4 mg/dL (0.2-1.0); CALCIUM 7.8 mg/dL (8.5-10.1); CARBON DIOXIDE,CO2 26.4 mmol/L (21.0-32.0); EST CRCL DRUG DOSING (CG) 39.63 mL/min; MAGNESIUM 2.2 mg/dL (1.8-2.4); PHOSPHORUS 2.7 mg/dL (2.6-4.7); POTASSIUM,K 4.4 mmol/L (3.5-5.1); PROTEIN TOTAL,TP 4.6 g/dL (6.4-8.2)
[2024-03-29 07:22] LABS: BASOPHILS PERCENT MAN 0 % (0-1); EOSINOPHILS PERCENT MAN 0 % (0-6); LYMPHOCYTES ABSOLUTE MAN 0.26 K/uL (1.00-4.80); LYMPHOCYTES PERCENT MAN 3 % (24-44); MONOCYTES ABSOLUTE MAN 0.26 K/uL (0.00-0.80); MONOCYTES PERCENT MAN 3 % (0-8); SEG NEUTROPHILS ABSOLUTE MAN 8.18 K/uL (1.80-7.70); SEG NEUTROPHILS PERCENT MAN 94 % (41-71)
[2024-03-29 10:44] LABS: PERCENT FE SATURATION 20.12 % (20-55)
[2024-03-29] MEDS: guaiFENesin 600 MG Tab.ER PO SCH (12:30)
[2024-03-29 14:15] LABS: BASOPHILS ABSOLUTE AUTO 0.01 K/uL (0.00-0.20); BASOPHILS PERCENT AUTO 0.1 % (0.0-1.0); HEMATOCRIT 29.5 % (37.0-47.0); HEMOGLOBIN 9.9 g/dL (12.0-16.0); IMMATURE GRAN ABSOLUTE AUTO 0.03 K/uL (0.00-0.05); IMMATURE GRAN PERCENT AUTO 0.3 % (0.0-0.4); LYMPHOCYTES ABSOLUTE AUTO 0.41 K/uL (1.00-4.80); LYMPHOCYTES PERCENT AUTO 4.7 % (24.0-44.0); MEAN CORPUSCULAR HEMOGLOBIN 30.1 pg (28.0-32.0); MEAN CORPUSCULAR HGB CONC 33.6 g/dL (32.0-36.0); MEAN CORPUSCULAR VOLUME 89.7 fL (83.0-99.0); MONOCYTES ABSOLUTE AUTO 0.21 K/uL (0.00-0.80); MONOCYTES PERCENT AUTO 2.4 % (0.0-8.0); NEUTROPHILS ABSOLUTE AUTO 8.11 K/uL (1.80-7.70); NEUTROPHILS PERCENT AUTO 92.5 % (41.0-71.0); PLATELET COUNT,PLT 130 K/uL (150-400); RED BLOOD CELL COUNT 3.29 M/uL (4.10-5.30); WHITE BLOOD CELL COUNT,WBC 8.77 K/uL (3.9-11.3)
[2024-03-29] MEDS: Desvenlafaxine Succinate 25 MG TAB.ER PO SCH ×2 (15:00→19:29)
[2024-03-29] MEDS: SUMAtriptan 50 MG Tab PO PRN (21:42)
[2024-03-30 05:50] LABS: BASOPHILS ABSOLUTE AUTO 0.01 K/uL (0.00-0.20); BASOPHILS PERCENT AUTO 0.1 % (0.0-1.0); HEMATOCRIT 30.9 % (37.0-47.0); IMMATURE GRAN ABSOLUTE AUTO 0.05 K/uL (0.00-0.05); IMMATURE GRAN PERCENT AUTO 0.6 % (0.0-0.4); LYMPHOCYTES ABSOLUTE AUTO 0.79 K/uL (1.00-4.80); LYMPHOCYTES PERCENT AUTO 9.8 % (24.0-44.0); MEAN CORPUSCULAR HEMOGLOBIN 29.5 pg (28.0-32.0); MEAN CORPUSCULAR HGB CONC 32.4 g/dL (32.0-36.0); MEAN CORPUSCULAR VOLUME 91.2 fL (83.0-99.0); MEAN PLATELET VOLUME 10.4 fL (9.4-12.3); MONOCYTES ABSOLUTE AUTO 0.46 K/uL (0.00-0.80); MONOCYTES PERCENT AUTO 5.7 % (0.0-8.0); NEUTROPHILS ABSOLUTE AUTO 6.75 K/uL (1.80-7.70); NEUTROPHILS PERCENT AUTO 83.8 % (41.0-71.0); PLATELET COUNT,PLT 144 K/uL (150-400); RED BLOOD CELL COUNT 3.39 M/uL (4.10-5.30); WHITE BLOOD CELL COUNT,WBC 8.06 K/uL (3.9-11.3)
[2024-03-30 06:16] LABS: A/G RATIO 0.7 (0.9-1.6); BILIRUBIN TOTAL 0.2 mg/dL (0.2-1.0); CALCIUM 8.2 mg/dL (8.5-10.1); CARBON DIOXIDE,CO2 23.4 mmol/L (21.0-32.0); CREATININE 0.9 mg/dL (0.6-1.0); EST CRCL DRUG DOSING (CG) 44.03 mL/min; MAGNESIUM 1.9 mg/dL (1.8-2.4); PHOSPHORUS 2.5 mg/dL (2.6-4.7); POTASSIUM,K 4.4 mmol/L (3.5-5.1)
[2024-03-30] MEDS: Iron Polysaccharides Complex 150 MG Cap PO SCH (09:04)
[2024-03-30 12:24] VITALS: BP 125/92; PULSE 76
== END 2024-03-30 14:18 | disposition home or self-care (01) | DRG 871 ==
LOC: MW.ED 12:30 → MW.ICU 16:37 → MW.ED 18:04 → MW.MS 03-30 08:09
PROVIDERS: ADMIT Family Medicine; ATTEND Family Medicine
PROC: 3E033XZ Introduction of Vasopressor into Peripheral Vein, Percutaneous Approach (ICD-10-PCS; principal; 2024-03-26)
PROC: 3E03329 Introduction of Other Anti-infective into Peripheral Vein, Percutaneous Approach (ICD-10-PCS; 2024-03-26)
PROC: XW033E5 Introduction of Remdesivir Anti-infective into Peripheral Vein, Percutaneous Approach, New Technology Group 5 (ICD-10-PCS; 2024-03-26)
PROC: 3E0333Z Introduction of Anti-inflammatory into Peripheral Vein, Percutaneous Approach (ICD-10-PCS; 2024-03-26)
PROC: 03HY32Z Insertion of Monitoring Device into Upper Artery, Percutaneous Approach (ICD-10-PCS; 2024-03-26)
PROC: 4A133B1 Monitoring of Arterial Pressure, Peripheral, Percutaneous Approach (ICD-10-PCS; 2024-03-26)
PROC: 4A133J1 Monitoring of Arterial Pulse, Peripheral, Percutaneous Approach (ICD-10-PCS; 2024-03-26)
PROC: 02H633Z Insertion of Infusion Device into Right Atrium, Percutaneous Approach (ICD-10-PCS; 2024-03-26)
DX: A41.9 Sepsis, unspecified organism (principal); J18.9 Pneumonia, unspecified organism; A41.89 Other specified sepsis; J12.82 Pneumonia due to coronavirus disease 2019; J96.01 Acute respiratory failure with hypoxia; R65.21 Severe sepsis with septic shock; Z79.82 Long term (current) use of aspirin; U07.1 COVID-19; Z75.8 Other problems related to medical facilities and other health care; N17.9 Acute kidney failure, unspecified; C91.01 Acute lymphoblastic leukemia, in remission; D84.821 Immunodeficiency due to drugs; E87.20 Acidosis, unspecified; T45.1X5A Adverse effect of antineoplastic and immunosuppressive drugs, initial encounter; I10 Essential (primary) hypertension; Z66 Do not resuscitate; K21.9 Gastro-esophageal reflux disease without esophagitis; F41.9 Anxiety disorder, unspecified; F32.A Depression, unspecified; G62.9 Polyneuropathy, unspecified; G43.909 Migraine, unspecified, not intractable, without status migrainosus; M19.90 Unspecified osteoarthritis, unspecified site; G89.29 Other chronic pain; M54.9 Dorsalgia, unspecified; J44.9 Chronic obstructive pulmonary disease, unspecified; H54.7 Unspecified visual loss; J45.20 Mild intermittent asthma, uncomplicated; E86.0 Dehydration; Z88.5 Allergy status to narcotic agent; Z79.01 Long term (current) use of anticoagulants; Z98.49 Cataract extraction status, unspecified eye; Z86.16 Personal history of COVID-19; Z90.49 Acquired absence of other specified parts of digestive tract; Z90.89 Acquired absence of other organs; Z90.710 Acquired absence of both cervix and uterus; Z96.659 Presence of unspecified artificial knee joint; Z98.890 Other specified postprocedural states; Z79.899 Other long term (current) drug therapy
CPT/HCPCS: 0241U; 36415; 51702; 71045; 74176; 77001; 80048; 80053; 80202; 82728; 83550; 83605; 83690; 83735; 83880; 84100; 84443; 84484; 85025; 87040; 87486; 87581; 87633; 87641; 87899; 93005; 93306; 96365; 96366; 96367; 96368; 97162; 99285; 36556; 36620; 93010; A9270-GY; J0248; J0456; J0692; J0696; J1100; J2405; J2470; J3010; J3370; J3475; J3490; J7030; J7040; J7050; J7120; J7620-GY

== ENCOUNTER 2024-06-12 07:13 | Emergency (ER) | payer MEDICARE ==
[2024-06-12] MEDS ORDERED: Sodium Chloride 0.9% 10 ML Syringe FLUSH PRN (07:15)
[2024-06-12 07:39] LABS: BASOPHILS ABSOLUTE AUTO 0.07 K/uL (0.00-0.20); BASOPHILS PERCENT AUTO 0.5 % (0.0-1.0); EOSINOPHILS ABSOLUTE AUTO 0.27 K/uL (0.00-0.45); HEMATOCRIT 38.1 % (37.0-47.0); HEMOGLOBIN 13.4 g/dL (12.0-16.0); IMMATURE GRAN ABSOLUTE AUTO 0.06 K/uL (0.00-0.05); IMMATURE GRAN PERCENT AUTO 0.4 % (0.0-0.4); LYMPHOCYTES ABSOLUTE AUTO 2.34 K/uL (1.00-4.80); MEAN CORPUSCULAR HEMOGLOBIN 30.8 pg (28.0-32.0); MEAN CORPUSCULAR HGB CONC 35.2 g/dL (32.0-36.0); MEAN CORPUSCULAR VOLUME 87.6 fL (83.0-99.0); MEAN PLATELET VOLUME 9.7 fL (9.4-12.3); MONOCYTES ABSOLUTE AUTO 0.81 K/uL (0.00-0.80); MONOCYTES PERCENT AUTO 5.9 % (0.0-8.0); NEUTROPHILS ABSOLUTE AUTO 10.21 K/uL (1.80-7.70); NEUTROPHILS PERCENT AUTO 74.2 % (41.0-71.0); PLATELET COUNT,PLT 168 K/uL (150-400); RED BLOOD CELL COUNT 4.35 M/uL (4.10-5.30); WHITE BLOOD CELL COUNT,WBC 13.76 K/uL (3.9-11.3)
[2024-06-12 07:46] LABS: INR 1.13 (0.86-1.11)
[2024-06-12 08:11] LABS: A/G RATIO 1.1 (0.9-1.6); ALANINE AMINOTRANSFERASE,ALT 20 IU/L (14-63); ALBUMIN 2.9 g/dL (3.4-5.0); ALKALINE PHOSPHATASE 149 U/L (46-116); ASPARTATE AMNIOTRANSFERASE,AST 24 IU/L (15-37); BILIRUBIN TOTAL 2.1 mg/dL (0.2-1.0); BLOOD UREA NITROGEN,BUN 15 mg/dL (7.0-18.0); CALCIUM 8.1 mg/dL (8.5-10.1); CARBON DIOXIDE,CO2 28.5 mmol/L (21.0-32.0); CHLORIDE,CL 103 mmol/L (98-107); CREATININE 1.3 mg/dL (0.6-1.0); GLUCOSE RANDOM 124 mg/dL (74-106); POTASSIUM,K 4.1 mmol/L (3.5-5.1); PROTEIN TOTAL,TP 5.5 g/dL (6.4-8.2); SODIUM,NA 137 mmol/L (136-145)
[2024-06-12 08:12] LABS: ESTIMATED GFR 43 mL/min (>60)
[2024-06-12] MEDS: Acetaminophen 500 MG Tab PO ONE (08:23)
[2024-06-12] MEDS: Sodium Chloride 0.9% 1,000 ML IV ONE ×2 (08:54→09:19)
[2024-06-12 10:35] LABS: BASE EXCESS VENOUS 3.2 (-2.0-3.0); BICARBONATE,VENOUS 30 mEQ/mL (22-28); PCO2 VENOUS 53 mmHG (41-51); PH,VENOUS 7.36 (7.31-7.41)
[2024-06-12 10:38] LABS: PO2 VENOUS < 30 mmHG (35-45)
[2024-06-12 12:22] LABS: APPEARANCE,URINE CLOUDY; BILIRUBIN,URINE NEGATIVE (NEGATIVE); COLOR,URINE YELLOW; GLUCOSE,URINE NEGATIVE (NEGATIVE); KETONES,URINE NEGATIVE (NEGATIVE); LEUKOCYTE ESTERASE,URINE MODERATE (NEGATIVE); NITRITE,URINE NEGATIVE (NEGATIVE); OCCULT BLOOD,URINE NEGATIVE (NEGATIVE); PROTEIN,URINE NEGATIVE (NEGATIVE)
[2024-06-12 12:38] LABS: BACTERIA,URINE 3+ (NEGATIVE); EPITHELIAL CELLS,URINE RARE (NONE-FEW); RBC,URINE 0-1 (0-2/HPF); WBC,URINE 30-40 (0-5/HPF)
[2024-06-12] MEDS: cefTRIAXone 2 GM in Sodium Chloride 0.9% 50 ML IV ONE (13:00)
[2024-06-12 13:49] VITALS: BP 103/64; PULSE 84
== END 2024-06-12 14:28 | disposition home or self-care (01) ==
LOC: MW.ED 07:13
DX: S09.90XA Unspecified injury of head, initial encounter (principal); G44.319 Acute post-traumatic headache, not intractable; N17.9 Acute kidney failure, unspecified; N30.00 Acute cystitis without hematuria; Z88.5 Allergy status to narcotic agent; J44.9 Chronic obstructive pulmonary disease, unspecified; K21.9 Gastro-esophageal reflux disease without esophagitis; Z86.16 Personal history of COVID-19; Z79.899 Other long term (current) drug therapy; Z79.01 Long term (current) use of anticoagulants; Z90.710 Acquired absence of both cervix and uterus; W01.198A Fall on same level from slipping, tripping and stumbling with subsequent striking against other object, initial encounter; Y92.009 Unspecified place in unspecified non-institutional (private) residence as the place of occurrence of the external cause
CPT/HCPCS: 36415; 70450; 71045; 72125; 80053; 81001; 82803; 83605; 83880; 85025; 85610; 87040; 93005; 96361; 96365; 99285; A9270; J0696; J3490; J7030; 93010

== ENCOUNTER 2024-07-04 20:51 | Inpatient (IN) | payer MEDICARE, OTHER ==
[2024-07-04 21:10] LABS: BASOPHILS ABSOLUTE AUTO 0.11 K/uL (0.00-0.20); BASOPHILS PERCENT AUTO 0.9 % (0.0-1.0); EOSINOPHILS ABSOLUTE AUTO 0.52 K/uL (0.00-0.45); EOSINOPHILS PERCENT AUTO 4.2 % (0.0-6.0); HEMOGLOBIN 13.5 g/dL (12.0-16.0); IMMATURE GRAN PERCENT AUTO 0.8 % (0.0-0.4); LYMPHOCYTES PERCENT AUTO 14.7 % (24.0-44.0); MEAN CORPUSCULAR HEMOGLOBIN 30.3 pg (28.0-32.0); MEAN CORPUSCULAR HGB CONC 35.5 g/dL (32.0-36.0); MEAN CORPUSCULAR VOLUME 85.4 fL (83.0-99.0); MEAN PLATELET VOLUME 9.6 fL (9.4-12.3); MONOCYTES ABSOLUTE AUTO 1.01 K/uL (0.00-0.80); MONOCYTES PERCENT AUTO 8.2 % (0.0-8.0); NEUTROPHILS ABSOLUTE AUTO 8.73 K/uL (1.80-7.70); NEUTROPHILS PERCENT AUTO 71.2 % (41.0-71.0); PLATELET COUNT,PLT 261 K/uL (150-400); RED BLOOD CELL COUNT 4.45 M/uL (4.10-5.30); WHITE BLOOD CELL COUNT,WBC 12.27 K/uL (3.9-11.3)
[2024-07-04 21:15] LABS: PH,VENOUS 7.32 (7.31-7.41)
[2024-07-04] MEDS ORDERED: Sodium Chloride 0.9% 1,000 ML IV ONE (21:19)
[2024-07-04 21:23] LABS: INR 1.1 (0.86-1.11)
[2024-07-04] MEDS: methylPREDNISolone Sodium Succinate 125 MG/2 ML SDV IVPUSH ONE (21:27)
[2024-07-04] MEDS: Albuterol/Ipratropium 3.0-0.5 MG/3 ML Neb Soln NEB ONE (21:27)
[2024-07-04] MEDS: Sodium Chloride 0.9% 500 ML IV SCH ×2 (21:27→22:20)
[2024-07-04] MEDS: Sodium Chloride 0.9% 10 ML Syringe FLUSH PRN (21:35)
[2024-07-04 21:53] LABS: A/G RATIO 1.1 (0.9-1.6); ALBUMIN 3.6 g/dL (3.4-5.0); CALCIUM 8.8 mg/dL (8.5-10.1); CARBON DIOXIDE,CO2 25.9 mmol/L (21.0-32.0); CREATININE 1.5 mg/dL (0.6-1.0); EST CRCL DRUG DOSING (CG) 26.42 mL/min; POTASSIUM,K 4.4 mmol/L (3.5-5.1); PROTEIN TOTAL,TP 6.8 g/dL (6.4-8.2)
[2024-07-04] MEDS: guaiFENesin 600 MG Tab.ER PO ONE (22:50)
[2024-07-04 23:09] LABS: PH,VENOUS 7.34 (7.31-7.41)
[2024-07-04] MEDS: Iopamidol 755 MG/ML 500 ML Multipack Bottle IVPUSH ONE (23:22)
[2024-07-05] MEDS: cefTRIAXone 2 GM in Sodium Chloride 0.9% 50 ML IV ONE (00:06)
[2024-07-05] MEDS: Doxycycline 100 MG in Sodium Chloride 0.9% 100 ML IV SCH ×2 (00:52→10:54)
[2024-07-05] MEDS ORDERED: Albuterol/Ipratropium 3.0-0.5 MG/3 ML Neb Soln NEB PRN (02:37)
[2024-07-05] MEDS ORDERED: Ondansetron 4 MG/2 ML SDV IVPUSH PRN (02:38)
[2024-07-05] MEDS: Nortriptyline 25 MG Cap PO SCH (03:03)
[2024-07-05 06:02] LABS: BASOPHILS ABSOLUTE AUTO 0.05 K/uL (0.00-0.20); BASOPHILS PERCENT AUTO 0.5 % (0.0-1.0); EOSINOPHILS ABSOLUTE AUTO 0.14 K/uL (0.00-0.45); EOSINOPHILS PERCENT AUTO 1.4 % (0.0-6.0); HEMATOCRIT 38.8 % (37.0-47.0); HEMOGLOBIN 13.6 g/dL (12.0-16.0); LYMPHOCYTES ABSOLUTE AUTO 0.85 K/uL (1.00-4.80); LYMPHOCYTES PERCENT AUTO 8.5 % (24.0-44.0); MEAN CORPUSCULAR HEMOGLOBIN 30.5 pg (28.0-32.0); MEAN CORPUSCULAR HGB CONC 35.1 g/dL (32.0-36.0); MEAN PLATELET VOLUME 9.6 fL (9.4-12.3); MONOCYTES ABSOLUTE AUTO 0.14 K/uL (0.00-0.80); MONOCYTES PERCENT AUTO 1.4 % (0.0-8.0); NEUTROPHILS ABSOLUTE AUTO 8.68 K/uL (1.80-7.70); NEUTROPHILS PERCENT AUTO 87.2 % (41.0-71.0); PLATELET COUNT,PLT 235 K/uL (150-400); RED BLOOD CELL COUNT 4.46 M/uL (4.10-5.30); WHITE BLOOD CELL COUNT,WBC 9.96 K/uL (3.9-11.3)
[2024-07-05 06:29] LABS: CALCIUM 8.8 mg/dL (8.5-10.1); CREATININE 1.4 mg/dL (0.6-1.0); EST CRCL DRUG DOSING (CG) 28.31 mL/min; POTASSIUM,K 4.3 mmol/L (3.5-5.1)
[2024-07-05] MEDS: oxyCODONE 5 MG Tab PO PRN (07:57)
[2024-07-05] MEDS ORDERED: ALPRAZolam 0.5 MG Tab PO PRN (10:23)
[2024-07-05] MEDS: FORMOTEROL FUMARATE INH SCH (10:53)
[2024-07-05] MEDS: Gabapentin 300 MG Cap PO SCH (10:53)
[2024-07-05] MEDS: Apixaban 5 MG Tab PO SCH (10:53)
[2024-07-05] MEDS: BUDESONIDE INH SCH (10:53)
[2024-07-05] MEDS: Desvenlafaxine Succinate 25 MG TAB.ER PO SCH (10:53)
[2024-07-05] MEDS ORDERED: guaiFENesin 600 MG Tab.ER PO PRN (12:18)
[2024-07-05] MEDS: Polyethylene Glycol 3350 Powder 17 GM Packet PO SCH (13:22)
[2024-07-05] MEDS: Sodium Chloride 0.9% 1,000 ML IV SCH (13:23)
[2024-07-05] MEDS: Pantoprazole 40 MG Tab.CR PO SCH (20:54)
[2024-07-05] MEDS: Acetaminophen 325 MG Tab PO PRN (20:54)
[2024-07-05] MEDS ORDERED: Nortriptyline 25 MG Cap PO SCH (21:00)
[2024-07-05] MEDS: Benzonatate 100 MG Cap PO PRN (22:10)
[2024-07-05] MEDS: cefTRIAXone 1 GM in Sodium Chloride 0.9% 50 ML IV SCH (23:02)
[2024-07-06 05:52] LABS: BASOPHILS ABSOLUTE AUTO 0.06 K/uL (0.00-0.20); BASOPHILS PERCENT AUTO 0.9 % (0.0-1.0); EOSINOPHILS ABSOLUTE AUTO 0.24 K/uL (0.00-0.45); EOSINOPHILS PERCENT AUTO 3.5 % (0.0-6.0); HEMATOCRIT 33.2 % (37.0-47.0); HEMOGLOBIN 11.2 g/dL (12.0-16.0); IMMATURE GRAN PERCENT AUTO 1.4 % (0.0-0.4); LYMPHOCYTES ABSOLUTE AUTO 1.98 K/uL (1.00-4.80); LYMPHOCYTES PERCENT AUTO 28.7 % (24.0-44.0); MEAN CORPUSCULAR HEMOGLOBIN 29.9 pg (28.0-32.0); MEAN CORPUSCULAR HGB CONC 33.7 g/dL (32.0-36.0); MEAN CORPUSCULAR VOLUME 88.8 fL (83.0-99.0); MEAN PLATELET VOLUME 9.8 fL (9.4-12.3); MONOCYTES ABSOLUTE AUTO 0.68 K/uL (0.00-0.80); MONOCYTES PERCENT AUTO 9.9 % (0.0-8.0); NEUTROPHILS ABSOLUTE AUTO 3.84 K/uL (1.80-7.70); NEUTROPHILS PERCENT AUTO 55.6 % (41.0-71.0); PLATELET COUNT,PLT 223 K/uL (150-400); RED BLOOD CELL COUNT 3.74 M/uL (4.10-5.30)
[2024-07-06 06:22] LABS: CALCIUM 7.9 mg/dL (8.5-10.1); CARBON DIOXIDE,CO2 24.3 mmol/L (21.0-32.0); CREATININE 1.1 mg/dL (0.6-1.0); EST CRCL DRUG DOSING (CG) 36.02 mL/min; MAGNESIUM 1.8 mg/dL (1.8-2.4); POTASSIUM,K 3.5 mmol/L (3.5-5.1)
[2024-07-06] MEDS: Magnesium Oxide 400 MG Tab PO ONE (10:28)
[2024-07-06] MEDS: Potassium Chloride 20 MEQ Tab.ER PO ONE (10:28)
[2024-07-06] MEDS: fentaNYL 25 MCG/HR Transdermal Patch TOP SCH (10:29)
[2024-07-06] MEDS: Sodium Chloride 0.9% 1,000 ML IV SCH (13:50)
[2024-07-06] MEDS: Sodium Chloride 0.9% 1,000 ML IV ONE (14:20)
[2024-07-06] MEDS: Albuterol/Ipratropium 3.0-0.5 MG/3 ML Neb Soln NEB PRN (14:58)
[2024-07-06 21:01] LABS: BORDETELLA PARAPERT IS1001 Not Detected (Not Detected)
[2024-07-06] MEDS: Heparin Sodium 5,000 Units/ML Vial SUBCUT SCH (21:08)
[2024-07-07 06:19] LABS: BASOPHILS ABSOLUTE AUTO 0.07 K/uL (0.00-0.20); BASOPHILS PERCENT AUTO 1.3 % (0.0-1.0); EOSINOPHILS ABSOLUTE AUTO 0.32 K/uL (0.00-0.45); EOSINOPHILS PERCENT AUTO 5.8 % (0.0-6.0); HEMATOCRIT 31.8 % (37.0-47.0); HEMOGLOBIN 10.7 g/dL (12.0-16.0); IMMATURE GRAN ABSOLUTE AUTO 0.12 K/uL (0.00-0.05); IMMATURE GRAN PERCENT AUTO 2.2 % (0.0-0.4); LYMPHOCYTES ABSOLUTE AUTO 1.68 K/uL (1.00-4.80); LYMPHOCYTES PERCENT AUTO 30.2 % (24.0-44.0); MEAN CORPUSCULAR HEMOGLOBIN 29.8 pg (28.0-32.0); MEAN CORPUSCULAR HGB CONC 33.6 g/dL (32.0-36.0); MEAN CORPUSCULAR VOLUME 88.6 fL (83.0-99.0); MEAN PLATELET VOLUME 9.6 fL (9.4-12.3); MONOCYTES ABSOLUTE AUTO 0.48 K/uL (0.00-0.80); MONOCYTES PERCENT AUTO 8.6 % (0.0-8.0); NEUTROPHILS ABSOLUTE AUTO 2.89 K/uL (1.80-7.70); NEUTROPHILS PERCENT AUTO 51.9 % (41.0-71.0); PLATELET COUNT,PLT 208 K/uL (150-400); RED BLOOD CELL COUNT 3.59 M/uL (4.10-5.30); WHITE BLOOD CELL COUNT,WBC 5.56 K/uL (3.9-11.3)
[2024-07-07 06:39] LABS: CALCIUM 8.2 mg/dL (8.5-10.1); CARBON DIOXIDE,CO2 25.4 mmol/L (21.0-32.0); EST CRCL DRUG DOSING (CG) 39.63 mL/min; MAGNESIUM 1.7 mg/dL (1.8-2.4); POTASSIUM,K 3.9 mmol/L (3.5-5.1)
[2024-07-07] MEDS: Magnesium Sulfate/Water Premix 2 GM in Premix Bag 1 BAG IV ONE (07:50)
[2024-07-07 12:24] VITALS: BP 145/85; PULSE 80
== END 2024-07-07 13:30 | disposition home or self-care (01) | DRG 194 ==
LOC: MW.ED 20:51 → MW.MS 07-05 00:35
PROVIDERS: ADMIT Family Medicine; ATTEND Family Medicine
DX: J18.9 Pneumonia, unspecified organism (principal); R74.02 Elevation of levels of lactic acid dehydrogenase [LDH]; J44.9 Chronic obstructive pulmonary disease, unspecified; J10.00 Influenza due to other identified influenza virus with unspecified type of pneumonia; C91.01 Acute lymphoblastic leukemia, in remission; J44.0 Chronic obstructive pulmonary disease with (acute) lower respiratory infection; Z88.0 Allergy status to penicillin; J96.10 Chronic respiratory failure, unspecified whether with hypoxia or hypercapnia; N17.9 Acute kidney failure, unspecified; I10 Essential (primary) hypertension; J45.909 Unspecified asthma, uncomplicated; G62.9 Polyneuropathy, unspecified; G89.29 Other chronic pain; M54.50 Low back pain, unspecified; H26.9 Unspecified cataract; H54.7 Unspecified visual loss; J44.89 Other specified chronic obstructive pulmonary disease; K21.9 Gastro-esophageal reflux disease without esophagitis; M19.90 Unspecified osteoarthritis, unspecified site; G43.909 Migraine, unspecified, not intractable, without status migrainosus; F41.9 Anxiety disorder, unspecified; Z96.659 Presence of unspecified artificial knee joint; F15.90 Other stimulant use, unspecified, uncomplicated; F32.A Depression, unspecified; Z98.49 Cataract extraction status, unspecified eye; Z90.49 Acquired absence of other specified parts of digestive tract; Z88.5 Allergy status to narcotic agent; Z79.891 Long term (current) use of opiate analgesic; Z79.01 Long term (current) use of anticoagulants; Z79.51 Long term (current) use of inhaled steroids; Z79.899 Other long term (current) drug therapy; Z87.440 Personal history of urinary (tract) infections; Z87.81 Personal history of (healed) traumatic fracture; Z98.890 Other specified postprocedural states; Z90.710 Acquired absence of both cervix and uterus
CPT/HCPCS: 36415; 71045; 71260; 80053; 82803 ×2; 83605 ×2; 83880; 84484; 85025; 85610; 87040 ×2; 87428; 93005; 96361; 96365; 96375; 99285; A9270; J0696; J2919; J3490; J7040 ×2; Q9967; 80048; 83735; 87486; 87581; 87633; 87641; 87899; 93010; 99222; 99232; 99239; J1644; J3475; J7030; J7620-GY